=== PATIENT | female | born 1960 | race Caucasian/White ===

== ENCOUNTER 2019-03-31 15:09 | Emergency (ER) | payer MEDICARE, MEDICAID ==
[~2019-03-31] VITALS: Ht 170.2 cm; Wt 45.8 kg
[~2019-03-31 15:09] MED LIST: CITA20TA28 PO; DOCU100C63 PO; GABA-338 PO; LEVE500T PO; OMEP-84 PO
[2019-03-31 15:58] LABS: BASOPHILS % (AUTO) 0.9 % (0-1); EOSINOPHILS # (AUTO) 0.1 X10'3 (0-0.9); EOSINOPHILS % (AUTO) 1.8 % (0-6); HEMATOCRIT 36.3 % (35.0-45.0); HEMOGLOBIN 12.5 g/dl (12.0-16.0); LYMPHOCYTES # (AUTO) 1.3 X10'3 (1.1-4.8); LYMPHOCYTES % (AUTO) 25.3 % (21-51); MEAN CORPUSCULAR HEMOGLOBIN 35.2 PG (27.0-31.0); MEAN CORPUSCULAR HGB CONC 34.5 g/dL (33.0-36.5); MEAN PLATELET VOLUME 7.5 FL (7.4-10.4); MONOCYTES # (AUTO) 0.4 X10'3 (0-0.9); MONOCYTES % (AUTO) 7.9 % (2-12); NEUTROPHILS # (AUTO) 3.4 X10'3 (1.8-7.7); NEUTROPHILS % (AUTO) 64.1 % (42-75); PLATELET COUNT 186 X10'3 (140-440); RED BLOOD COUNT 3.56 X10'6 (4.20-5.60); WHITE BLOOD COUNT 5.2 X10'3 (4.5-11.0)
[2019-03-31] MEDS ORDERED: LIDOcaine Viscous 15ml cup PO ONE (16:00)
[2019-03-31] MEDS ORDERED: mag hydrox/Alum hydrox/simeth 30ml oral suspension PO ONE (16:00)
[2019-03-31 16:05] LABS: ALANINE AMINOTRANSFERASE 82 U/L (12-78); ALBUMIN 4.3 G/DL (3.4-5.0); ALBUMIN/GLOBULIN RATIO 1.1 (1.1-1.5); ALKALINE PHOSPHATASE 83 IU/L (46-116); ANION GAP 11 (8-16); ASPARTATE AMINO TRANSFERASE 100 U/L (10-37); BILIRUBIN,TOTAL 0.3 MG/DL (0.1-1.0); BLOOD UREA NITROGEN 9 MG/DL (7-18); BUN/CREATININE RATIO 11.7 (6.6-38.0); CALCIUM 9.1 MG/DL (8.5-10.1); CHLORIDE 97 MMOL/L (99-107); CREATININE 0.77 MG/DL (0.40-0.90); GLUCOSE 109 MG/DL (70-104); POTASSIUM 4.1 MMOL/L (3.5-5.1); SODIUM 134 MMOL/L (135-145); TOTAL CARBON DIOXIDE 25.6 MMOL/L (24-32); TOTAL PROTEIN 8.3 G/DL (6.4-8.2); eGFR 78 ML/MIN
[2019-03-31 16:08] LABS: PARTIAL THROMBOPLASTIN TIME 25 SECONDS (22-32)
[2019-03-31] MEDS ORDERED: OMEP40CA13 PO (16:12)
[2019-03-31 16:53] VITALS: BP 166/94
== END 2019-03-31 16:55 | disposition home or self-care (01) ==
LOC: ER 15:09
DX: R07.89 Other chest pain (principal); G89.29 Other chronic pain; M19.90 Unspecified osteoarthritis, unspecified site; F41.9 Anxiety disorder, unspecified; F32.9 Major depressive disorder, single episode, unspecified; F10.99 Alcohol use, unspecified with unspecified alcohol-induced disorder; Z86.69 Personal history of other diseases of the nervous system and sense organs; Z98.890 Other specified postprocedural states; Z98.51 Tubal ligation status; F17.210 Nicotine dependence, cigarettes, uncomplicated; Z88.8 Allergy status to other drugs, medicaments and biological substances; Z79.899 Other long term (current) drug therapy; Y90.9 Presence of alcohol in blood, level not specified
CPT/HCPCS: 36415; 71045; 80053; 83880; 84484; 85025; 85610; 85730; 93005; 99284

== ENCOUNTER 2019-04-18 18:19 | Emergency (ER) | payer MEDICARE, MEDICAID ==
[~2019-04-18] VITALS: Ht 171.4 cm; Wt 59.1 kg
[~2019-04-18 18:19] MED LIST changes: +OMEP40CA13 PO
[2019-04-18 18:31] VITALS: BP 85/33
--- NOTE | 2019-04-18 18:39 | NUR ---
Pt said after triage that she thinks its just that she is low on water and that she would probably just go home and drink water.
== END 2019-04-18 19:45 | disposition left against medical advice (07) ==
LOC: ER 18:20
DX: R42 Dizziness and giddiness (principal); Z53.21 Procedure and treatment not carried out due to patient leaving prior to being seen by health care provider
CPT/HCPCS: 93005

== ENCOUNTER 2020-01-09 17:04 | Emergency (ER) | payer MEDICARE, MEDICAID ==
[~2020-01-09] VITALS: Ht 170.2 cm; Wt 59.0 kg
[~2020-01-09 17:04] MED LIST changes: -OMEP40CA13 PO
[2020-01-09 17:23] VITALS: BP 123/72
== END 2020-01-09 19:46 | disposition home or self-care (01) ==
LOC: ER 17:05
DX: S32.511A Fracture of superior rim of right pubis, initial encounter for closed fracture (principal); M25.551 Pain in right hip; M19.90 Unspecified osteoarthritis, unspecified site; G89.29 Other chronic pain; F41.9 Anxiety disorder, unspecified; F32.9 Major depressive disorder, single episode, unspecified; Z98.51 Tubal ligation status; Z86.69 Personal history of other diseases of the nervous system and sense organs; Z87.440 Personal history of urinary (tract) infections; Z98.890 Other specified postprocedural states; Z72.89 Other problems related to lifestyle; Z88.8 Allergy status to other drugs, medicaments and biological substances; Z79.899 Other long term (current) drug therapy; W18.39XA Other fall on same level, initial encounter; Y93.89 Activity, other specified; Y92.89 Other specified places as the place of occurrence of the external cause; Y99.8 Other external cause status
CPT/HCPCS: 73502; 99283

== ENCOUNTER 2020-05-05 12:14 | Inpatient (IN) | payer MEDICARE, MEDICAID ==
[~2020-05-05] VITALS: Ht 170.2 cm; Wt 63.6 kg
[2020-05-05] VITALS (17 sets, daily range): BP systolic 85–105; BP diastolic 47–60
[2020-05-05] MEDS ORDERED: fentaNYL/PF 50MCG/1 ML 2ML syringe IV ONE (12:30)
[2020-05-05] MEDS ORDERED: ondansetron/PF 4mg/2ml inj IV ONE (12:30)
[2020-05-05] MEDS ORDERED: LIDOcaine 2% 10ml TOPICAL JELLY (Urojet) TP ONE (12:30)
--- NOTE | 2020-05-05 12:58 | NUR ---
BACK FROM RADIOLOGY
[2020-05-05] MEDS ORDERED: normal saline 1000ml 1,000 ML IV ONE (13:10)
[2020-05-05] MEDS ORDERED: normal saline 1000ML IV soln IVB ONE (13:10)
[2020-05-05 13:31] LABS: BASOPHILS % (AUTO) 0.5 % (0-1); EOSINOPHILS % (AUTO) 0 % (0-6); HEMOGLOBIN 11.9 g/dl (12.0-16.0); LYMPHOCYTES # (AUTO) 0.8 X10'3 (1.1-4.8); MEAN CORPUSCULAR HEMOGLOBIN 34.7 PG (27.0-31.0); MEAN PLATELET VOLUME 8.1 FL (7.4-10.4); MONOCYTES # (AUTO) 0.7 X10'3 (0-0.9); MONOCYTES % (AUTO) 11.2 % (2-12); NEUTROPHILS # (AUTO) 4.5 X10'3 (1.8-7.7); NEUTROPHILS % (AUTO) 75.3 % (42-75); PLATELET COUNT 178 X10'3 (140-440); RED BLOOD COUNT 3.43 X10'6 (4.20-5.60); RED CELL DISTRIBUTION WIDTH 12.6 % (11.5-14.5)
[2020-05-05 13:44] LABS: PARTIAL THROMBOPLASTIN TIME 24 SECONDS (22-32)
[2020-05-05] MEDS ORDERED: magnesium 2GM in 50ml NS 50 ML IV PRN (13:45)
[2020-05-05] MEDS ORDERED: magnesium 4gm in 100ml NS 100 ML IV PRN (13:45)
[2020-05-05] MEDS ORDERED: potassium CL 10mEq/100ml bag 100 ML IV PRN ×2 (13:45)
[2020-05-05] MEDS ORDERED: morphine 2 MG/ML inj. syringe IV PRN ×2 (13:45→19:00)
[2020-05-05] MEDS ORDERED: ondansetron/PF 4mg/2ml inj IV PRN ×2 (13:45→19:00)
[2020-05-05] MEDS ORDERED: potassium Cl 20 mEq SR tablet PO PRN ×2 (13:45)
[2020-05-05] MEDS ORDERED: acetaminophen 325mg tablet PO PRN (13:45)
[2020-05-05 13:47] LABS: ALANINE AMINOTRANSFERASE 103 U/L (12-78); ALBUMIN 4.2 G/DL (3.4-5.0); ALBUMIN/GLOBULIN RATIO 1.1 (1.1-1.5); ALKALINE PHOSPHATASE 71 IU/L (46-116); ANION GAP 11 (8-16); ASPARTATE AMINO TRANSFERASE 106 U/L (10-37); BILIRUBIN,TOTAL 0.4 MG/DL (0.1-1.0); BLOOD UREA NITROGEN 12 MG/DL (7-18); CALCIUM 9.3 MG/DL (8.5-10.1); CHLORIDE 96 MMOL/L (99-107); GLUCOSE 103 MG/DL (70-104); POTASSIUM 4.4 MMOL/L (3.5-5.1); SODIUM 129 MMOL/L (135-145); TOTAL CARBON DIOXIDE 22.1 MMOL/L (24-32); TOTAL PROTEIN 8.1 G/DL (6.4-8.2); eGFR 57 ML/MIN
[2020-05-05] MEDS ORDERED: LAMO25TA23 PO (14:06)
[2020-05-05] MEDS ORDERED: SERT50TA10 PO (14:06)
[2020-05-05] MEDS ORDERED: ZIPR20CA12 PO (14:06)
[2020-05-05] MEDS ORDERED: ZOLP5TAB8 PO (14:06)
[2020-05-05] MEDS ORDERED: TRAZ-256 PO (14:06)
[2020-05-05] MEDS ORDERED: OMEP10CA5 PO (14:06)
[2020-05-05] MEDS ORDERED: HYDR-3972 PO (14:06)
--- NOTE | 2020-05-05 14:13 | NUR ---
Ninfa verma in ED - 05/05/20 at [address] SCAN AFTER PT PULLED OUT IV, FRESH 20 G PIV STARTED TO LEFT FOREARM
[2020-05-05 14:14] LABS: CLARITY,URINE CLOUDY (Clear); COLOR,URINE STRAW (Yellow); GLUCOSE, URINE NEGATIVE (Neg); KETONES,URINE NEGATIVE (Neg); LEUKOCYTE ESTERASE ,URINE SMALL (Neg); NITRITES, URINE POSITIVE (Neg); OCCULT BLOOD,URINE TRACE-LYSED (Neg); PROTEIN,URINE NEGATIVE (Neg); UROBILINOGEN,URINE 0.2 E.U/dL (0.2-1.0)
--- NOTE | 2020-05-05 14:16 | NUR ---
MULTIPLE ATTEMPTS TO OBTAIN 5 LEAD AND IV PUMP UNFRUITFUL, SUPERVISOR PAPER TESTINGERNA ELMORE,
--- NOTE | 2020-05-05 14:17 | NUR ---
FALL WRIST BAND AND ALLERGY BAND PLACED
[2020-05-05 14:19] LABS: UA COLLECTION TYPE FOLEY CATH
[2020-05-05 14:24] LABS: CELLULAR CAST 0-4 /LPF (NEGATIVE); HYALINE CASTS 0-3 /LPF (NEGATIVE); MUCUS STRANDS NONE SEEN /LPF (Neg); SQUAMOUS EPITHELIAL CELL,UR MODERATE /LPF (FEW); TRANSITIONAL EPI CELLS,URINE FEW /HPF
[2020-05-05 14:25] LABS: RENAL CELLS, URINE FEW /HPF; WBC,URINE 50-100 /HPF (0-4)
[2020-05-05 14:26] LABS: BACTERIA,URINE 4+ /HPF (Neg); RBC,URINE 0-2 /HPF (0-2); WBC CLUMPS,URINE FEW /HPF (NEGATIVE)
--- NOTE | 2020-05-05 16:28 | NUR ---
Patient in room ED 12. I have received report from SHELL UMANZOR and had the opportunity to ask questions and assume patient care.
--- NOTE | 2020-05-05 16:50 | NUR ---
pt left to OR for surgery
[2020-05-05] MEDS ORDERED: midazolam 2 mg/2 ml injection ONE (18:06)
[2020-05-05] MEDS ORDERED: fentaNYL /PF 50mcg/ml 5ml ampule ONE (18:06)
[2020-05-05] MEDS ORDERED: propofol inj 20 ML IV ONE (18:08)
--- NOTE | 2020-05-05 18:39 | NUR ---
Problems reprioritized. Patient report given, questions answered & plan of care reviewed with rachel Murcia.
[2020-05-05] MEDS ORDERED: proCHLORperazine 10 MG/2 ml inj IV PRN (19:00)
[2020-05-05] MEDS ORDERED: ringers solution, lacted 1,000 ML IV SCH (19:00)
[2020-05-05] MEDS ORDERED: ceFAZolin 1000mg inj ONE ×2 (19:26)
--- NOTE | 2020-05-05 19:28 | NUR ---
Received from OR via BED, accompanied by Anesthesiologist DR MCCORMICK and report given by Anesthesiologist. PT DROWSY, DENIES PAIN, LEFT HIP W/2 LARGE BANDAIDS CDI, TALBERT CATHETER TO GRAVITY DRAINAGE W/YELLOW URINE IN DRAINAGE BAG. PT W/BRUISE TO RIGHT EYE. BLANKET WARMER APPLIED FOR TEMP OF 35.9. Addendum: 05/05/20 at 2054 by Dedra Simmons RN Amended: Links added.
[2020-05-05] MEDS: K and/or MAG REPLACEMENT MC SCH (20:00)
[2020-05-05] MEDS ORDERED: enoxaparin 30mg/0.3ml syringe SUBCUT ONE (20:10)
[2020-05-05] MEDS: morphine 4 MG/ML inj SYRINge IV PRN ×2 (21:01→21:19)
--- NOTE | 2020-05-05 21:30 | NUR ---
Patient in room ORTHO 4010. I have received report from ERNA Colmenares in OR and had the opportunity to ask questions and assume patient care.
--- NOTE | 2020-05-05 21:38 | NUR ---
Report called to receiving nurse. Transferred via BED W/GLASSES ONLY Belongings, RECEIVING RN AT BEDSIDE TO RECEIVE PT, BLL, CALL LIGHT GIVEN, SIDE RAILS UP X 2, PAIN IMPROVED. Special Issues communicated to receiving nurse. YES. Addendum: 05/05/20 at 2149 by Dedra Simmons RN Amended: Links added.
[2020-05-05] MEDS: normal saline 1000ml 1,000 ML IV SCH (22:23)
[2020-05-05] MEDS: ziprasidone 20mg capsule PO SCH (22:23)
[2020-05-05] MEDS: traZODone 50mg tablet PO SCH (22:23)
[2020-05-05] MEDS: lamoTRIgine 25mg tablet PO SCH (22:24)
[2020-05-05] MEDS: sertraline 50mg tablet PO SCH (22:24)
[2020-05-05] MEDS: zolpidem 5mg tablet PO SCH (22:36)
[2020-05-06] VITALS (8 sets, daily range): BP systolic 81–130; BP diastolic 50–79
[2020-05-06] MEDS: cefazolin/dext.iso 2gm/50ml 50 ML IV SCH ×2 (00:28→11:17)
[2020-05-06] MEDS: HYDROcodone/acetaminophen 5mg/325mg tablet PO PRN ×3 (05:24→20:28)
[2020-05-06 06:26] LABS: BASOPHILS % (AUTO) 0.4 % (0-1); EOSINOPHILS % (AUTO) 0 % (0-6); HEMATOCRIT 22.7 % (35.0-45.0); HEMOGLOBIN 7.8 g/dl (12.0-16.0); LYMPHOCYTES # (AUTO) 0.4 X10'3 (1.1-4.8); LYMPHOCYTES % (AUTO) 9.9 % (21-51); MEAN CORPUSCULAR HEMOGLOBIN 35.3 PG (27.0-31.0); MEAN CORPUSCULAR HGB CONC 34.4 g/dL (33.0-36.5); MEAN CORPUSCULAR VOLUME 102.4 FL (78-98); MEAN PLATELET VOLUME 7.7 FL (7.4-10.4); MONOCYTES # (AUTO) 0.4 X10'3 (0-0.9); MONOCYTES % (AUTO) 11.3 % (2-12); NEUTROPHILS # (AUTO) 2.9 X10'3 (1.8-7.7); NEUTROPHILS % (AUTO) 78.4 % (42-75); PLATELET COUNT 118 X10'3 (140-440); RED BLOOD COUNT 2.22 X10'6 (4.20-5.60); RED CELL DISTRIBUTION WIDTH 12.6 % (11.5-14.5); WHITE BLOOD COUNT 3.7 X10'3 (4.5-11.0)
--- NOTE | 2020-05-06 06:28 | NUR ---
Patient in room ORTHO 4010. I have received report from Marii UMANZOR and had the opportunity to ask questions and assume patient care.
--- NOTE | 2020-05-06 06:34 | NUR ---
Problems reprioritized. Patient report given, questions answered & plan of care reviewed with ERNA Long.
--- NOTE | 2020-05-06 06:39 | NUR ---
I have received report from Tahmina UMANZOR and had the opportunity to ask questions and assume patient care.
--- NOTE | 2020-05-06 06:40 | NUR ---
Patient in room ORTHO 4010B. I have received report from Tahmina UMANZOR and had the opportunity to ask questions and assume patient care.
[2020-05-06 06:53] LABS: ALBUMIN 2.9 G/DL (3.4-5.0); ANION GAP 9 (8-16); BLOOD UREA NITROGEN 6 MG/DL (7-18); BUN/CREATININE RATIO 8.6 (6.6-38.0); CALCIUM 7.6 MG/DL (8.5-10.1); CHLORIDE 100 MMOL/L (99-107); GLUCOSE 128 MG/DL (70-104); MAGNESIUM 1.3 MG/DL (1.5-2.4); POTASSIUM 3.3 MMOL/L (3.5-5.1); SODIUM 130 MMOL/L (135-145); TOTAL CARBON DIOXIDE 21.5 MMOL/L (24-32); eGFR 86 ML/MIN
[2020-05-06] MEDS: K and/or MAG REPLACEMENT MC SCH ×2 (08:00→20:00)
[2020-05-06] MEDS: pantoprazole 40mg Tablet.DR PO SCH (09:16)
[2020-05-06] MEDS: CefTRIAXone/D5W-Rocephin 1gm 50 ML IV SCH (09:17)
[2020-05-06] MEDS: normal saline 1000ml 1,000 ML IV SCH ×2 (09:19→20:30)
[2020-05-06] MEDS: magnesium Cl slow-release 64mg tablet PO PRN ×2 (11:18→17:43)
--- NOTE | 2020-05-06 16:46 | NUR ---
Student documentation: I have reviewed all interventions, assessments performed and documented by Comfort CANTU of [facility]. Student Medication Administration: For all medication-pass' in the time frame of 8369-3036, all medications were reviewed, dispensed, administered and documented per hospital policy by Comfort CANTU of [facility].
--- NOTE | 2020-05-06 17:07 | NUR ---
Patient states her last BM was 05/05/20. Not seen by nursing staff. Addendum: 05/06/20 at 1708 by Mercedes Pires RN Amended: Links added.
--- NOTE | 2020-05-06 18:32 | NUR ---
Patient in room ORTHO 4010. I have received report from ERNA Long and had the opportunity to ask questions and assume patient care.
[2020-05-06] MEDS: traZODone 50mg tablet PO SCH (20:27)
[2020-05-06] MEDS: sertraline 50mg tablet PO SCH (20:27)
[2020-05-06] MEDS: ziprasidone 20mg capsule PO SCH (20:27)
[2020-05-06] MEDS: lamoTRIgine 25mg tablet PO SCH (20:27)
[2020-05-06] MEDS: zolpidem 5mg tablet PO SCH (20:27)
[2020-05-07] MEDS: HYDROcodone/acetaminophen 5mg/325mg tablet PO PRN ×2 (04:10→08:03)
[2020-05-07 06:00] VITALS: BP 90/50
--- NOTE | 2020-05-07 06:35 | NUR ---
Problems reprioritized. Patient report given, questions answered & plan of care reviewed with ERNA Gamez.
[2020-05-07 06:47] LABS: BASOPHILS % (AUTO) 0.4 % (0-1); EOSINOPHILS % (AUTO) 0 % (0-6); HEMOGLOBIN 7.2 g/dl (12.0-16.0); LYMPHOCYTES # (AUTO) 0.5 X10'3 (1.1-4.8); LYMPHOCYTES % (AUTO) 10.1 % (21-51); MEAN CORPUSCULAR HEMOGLOBIN 35.9 PG (27.0-31.0); MEAN CORPUSCULAR HGB CONC 35.1 g/dL (33.0-36.5); MEAN CORPUSCULAR VOLUME 102.3 FL (78-98); MEAN PLATELET VOLUME 7.1 FL (7.4-10.4); MONOCYTES # (AUTO) 0.7 X10'3 (0-0.9); NEUTROPHILS # (AUTO) 3.4 X10'3 (1.8-7.7); NEUTROPHILS % (AUTO) 74.5 % (42-75); PLATELET COUNT 119 X10'3 (140-440); RED CELL DISTRIBUTION WIDTH 12.7 % (11.5-14.5); WHITE BLOOD COUNT 4.6 X10'3 (4.5-11.0)
[2020-05-07 06:54] LABS: HEMATOCRIT 20.4 % (35.0-45.0)
[2020-05-07 06:55] LABS: ALBUMIN 2.6 G/DL (3.4-5.0); ANION GAP 6 (8-16); BLOOD UREA NITROGEN 3 MG/DL (7-18); BUN/CREATININE RATIO 5.6 (6.6-38.0); CALCIUM 8.1 MG/DL (8.5-10.1); CHLORIDE 101 MMOL/L (99-107); CREATININE 0.54 MG/DL (0.40-0.90); GLUCOSE 115 MG/DL (70-104); MAGNESIUM 1.6 MG/DL (1.5-2.4); POTASSIUM 3.7 MMOL/L (3.5-5.1); SODIUM 132 MMOL/L (135-145); TOTAL CARBON DIOXIDE 25.1 MMOL/L (24-32); eGFR > 90 ML/MIN
--- NOTE | 2020-05-07 07:01 | NUR ---
Patient in room ORTHO 4009. I have received report from Tahmina and had the opportunity to ask questions and assume patient care.
--- NOTE | 2020-05-07 07:21 | NUR ---
Franco 5199 Re: Cony Mccabe 7.2/20.4
[2020-05-07] MEDS: normal saline 1000ml 1,000 ML IV SCH ×2 (07:39→16:03)
[2020-05-07] MEDS: K and/or MAG REPLACEMENT MC SCH ×2 (07:42→20:00)
[2020-05-07] MEDS: CefTRIAXone/D5W-Rocephin 1gm 50 ML IV SCH (08:02)
[2020-05-07] MEDS: pantoprazole 40mg Tablet.DR PO SCH (08:03)
[2020-05-07 10:00] VITALS: BP 95/60
--- NOTE | 2020-05-07 11:16 | NUR ---
Re: Denita Cooper Pt pulled iv out. Will need another one. thank you.
[2020-05-07] MEDS ORDERED: ondansetron 4mg rapidly disintigrating tab PO PRN (11:20)
[2020-05-07] MEDS: HYDROcodone/acetaminophen 10/325mg tab PO PRN ×3 (12:18→21:39)
--- NOTE | 2020-05-07 14:06 | NUR ---
Franco 5199 Re: Cony Mccabe 7.2/20.4 from this am. Do you want to give patient blood?
[2020-05-07 18:00] VITALS: BP 121/78
[2020-05-07] MEDS: zolpidem 5mg tablet PO SCH (21:23)
[2020-05-07] MEDS: traZODone 50mg tablet PO SCH (21:23)
[2020-05-07] MEDS: ziprasidone 20mg capsule PO SCH (21:23)
[2020-05-07] MEDS: lamoTRIgine 25mg tablet PO SCH (21:24)
[2020-05-07] MEDS: sertraline 50mg tablet PO SCH (21:24)
[2020-05-07 22:00] VITALS: BP 135/68
[2020-05-08] VITALS (7 sets, daily range): BP systolic 95–137; BP diastolic 51–74
[2020-05-08] MEDS: normal saline 1000ml 1,000 ML IV SCH ×3 (01:24→20:32)
--- NOTE | 2020-05-08 06:25 | NUR ---
Patient in room ORTHO 4010. I have received report from [place] and had the opportunity to ask questions and assume patient care.
[2020-05-08 06:29] LABS: LYMPHOCYTES # (AUTO) 0.9 X10'3 (1.1-4.8); MONOCYTES # (AUTO) 0.6 X10'3 (0-0.9); NEUTROPHILS # (AUTO) 2.9 X10'3 (1.8-7.7); PLATELET COUNT 129 X10'3 (140-440); RED CELL DISTRIBUTION WIDTH 12.5 % (11.5-14.5); WHITE BLOOD COUNT 4.4 X10'3 (4.5-11.0)
[2020-05-08 06:38] LABS: ALBUMIN 2.6 G/DL (3.4-5.0); ANION GAP 10 (8-16); BLOOD UREA NITROGEN 6 MG/DL (7-18); BUN/CREATININE RATIO 10.7 (6.6-38.0); CALCIUM 8.7 MG/DL (8.5-10.1); CHLORIDE 100 MMOL/L (99-107); CREATININE 0.56 MG/DL (0.40-0.90); GLUCOSE 103 MG/DL (70-104); MAGNESIUM 1.7 MG/DL (1.5-2.4); POTASSIUM 3.8 MMOL/L (3.5-5.1); SODIUM 136 MMOL/L (135-145); TOTAL CARBON DIOXIDE 26.4 MMOL/L (24-32); eGFR > 90 ML/MIN
[2020-05-08 06:42] LABS: HEMOGLOBIN 7.1 g/dl (12.0-16.0); MEAN CORPUSCULAR HGB CONC 35.2 g/dL (33.0-36.5); MEAN CORPUSCULAR VOLUME 102.2 FL (78-98); RED BLOOD COUNT 1.97 X10'6 (4.20-5.60)
[2020-05-08 06:43] LABS: BASOPHILS % (AUTO) 0.4 % (0-1); EOSINOPHILS % (AUTO) 0.1 % (0-6); LYMPHOCYTES % (AUTO) 19.3 % (21-51); MEAN PLATELET VOLUME 7.6 FL (7.4-10.4); MONOCYTES % (AUTO) 14.4 % (2-12); NEUTROPHILS % (AUTO) 65.8 % (42-75)
[2020-05-08 06:44] LABS: HEMATOCRIT 20.2 % (35.0-45.0)
--- NOTE | 2020-05-08 07:00 | NUR ---
PAGER ID: [phone] MESSAGE: Nguyen Valencia on ortho, critical hematocrit of 20.2 for Ms. Sher in , thank you
[2020-05-08] MEDS: K and/or MAG REPLACEMENT MC SCH ×2 (08:00→19:51)
[2020-05-08] MEDS: pantoprazole 40mg Tablet.DR PO SCH (08:20)
[2020-05-08] MEDS: CefTRIAXone/D5W-Rocephin 1gm 50 ML IV SCH (08:20)
[2020-05-08] MEDS: HYDROcodone/acetaminophen 10/325mg tab PO PRN ×3 (08:21→19:09)
[2020-05-08] MEDS: aspirin 325mg tablet PO SCH (08:21)
--- NOTE | 2020-05-08 18:25 | NUR ---
Problems reprioritized. Patient report given, questions answered & plan of care reviewed with Debbie Merrill
[2020-05-08] MEDS: traZODone 50mg tablet PO SCH (20:53)
[2020-05-08] MEDS: lamoTRIgine 25mg tablet PO SCH (20:53)
[2020-05-08] MEDS: sertraline 50mg tablet PO SCH (20:53)
[2020-05-08] MEDS: zolpidem 5mg tablet PO SCH (20:54)
[2020-05-08] MEDS: ziprasidone 20mg capsule PO SCH (20:54)
[2020-05-09] MEDS: HYDROcodone/acetaminophen 10/325mg tab PO PRN ×3 (00:22→11:32)
--- NOTE | 2020-05-09 01:24 | NUR ---
reviewed and agree with SRN assessment.
[2020-05-09 06:29] LABS: ALBUMIN 2.7 G/DL (3.4-5.0); BLOOD UREA NITROGEN 6 MG/DL (7-18); GLUCOSE 97 MG/DL (70-104); MAGNESIUM 1.8 MG/DL (1.5-2.4); TOTAL CARBON DIOXIDE 28.1 MMOL/L (24-32); eGFR > 90 ML/MIN
[2020-05-09 06:32] LABS: BASOPHILS % (AUTO) 0.7 % (0-1); EOSINOPHILS % (AUTO) 0 % (0-6); HEMATOCRIT 23.6 % (35.0-45.0); HEMOGLOBIN 8.3 g/dl (12.0-16.0); LYMPHOCYTES # (AUTO) 0.8 X10'3 (1.1-4.8); LYMPHOCYTES % (AUTO) 19.3 % (21-51); MEAN CORPUSCULAR HEMOGLOBIN 34.3 PG (27.0-31.0); MEAN CORPUSCULAR HGB CONC 35.1 g/dL (33.0-36.5); MEAN CORPUSCULAR VOLUME 97.7 FL (78-98); MONOCYTES # (AUTO) 0.7 X10'3 (0-0.9); MONOCYTES % (AUTO) 15.7 % (2-12); NEUTROPHILS # (AUTO) 2.7 X10'3 (1.8-7.7); NEUTROPHILS % (AUTO) 64.3 % (42-75); PLATELET COUNT 167 X10'3 (140-440); RED BLOOD COUNT 2.41 X10'6 (4.20-5.60); RED CELL DISTRIBUTION WIDTH 15.5 % (11.5-14.5); WHITE BLOOD COUNT 4.3 X10'3 (4.5-11.0)
[2020-05-09 06:49] LABS: ANION GAP 8 (8-16); CHLORIDE 98 MMOL/L (99-107); POTASSIUM 3.6 MMOL/L (3.5-5.1); SODIUM 134 MMOL/L (135-145)
[2020-05-09] MEDS: CefTRIAXone/D5W-Rocephin 1gm 50 ML IV SCH (07:31)
[2020-05-09] MEDS: aspirin 325mg tablet PO SCH (07:31)
[2020-05-09] MEDS: pantoprazole 40mg Tablet.DR PO SCH (07:31)
[2020-05-09] MEDS: K and/or MAG REPLACEMENT MC SCH (08:00)
[2020-05-09 08:36] VITALS: BP 106/61
--- NOTE | 2020-05-09 08:58 | NUR ---
PAGER ID: [phone] MESSAGE: Lori [phone]- re Cony Sher in - can I order some MOM for her?
[2020-05-09] MEDS: normal saline 1000ml 1,000 ML IV SCH (09:39)
[2020-05-09] MEDS ORDERED: ASPI-1 PO (10:32)
[2020-05-09] MEDS ORDERED: magnesium hydroxide 30ml (MOM) UD suspension PO ONE (10:55)
[2020-05-09 12:12] VITALS: BP 95/63
[2020-05-09 13:45] LABS: ALANINE AMINOTRANSFERASE 58 U/L (12-78); ALBUMIN/GLOBULIN RATIO 0.7 (1.1-1.5); ALKALINE PHOSPHATASE 63 IU/L (46-116); ASPARTATE AMINO TRANSFERASE 61 U/L (10-37); BILIRUBIN,DIRECT 0.3 MG/DL (0-0.3); BILIRUBIN,TOTAL 0.6 MG/DL (0.1-1.0); TOTAL PROTEIN 6.6 G/DL (6.4-8.2)
== END 2020-05-09 16:15 | DRG 481 ==
LOC: ER 12:15 → ED HOLD 13:42 → ORTHO 4S 21:41
PROVIDERS: ADMIT Internal Medicine; ATTEND Internal Medicine
PROC: 0QH936Z Insertion of Intramedullary Internal Fixation Device into Left Femoral Shaft, Percutaneous Approach (ICD-10-PCS; principal; 2020-05-05 18:03)
PROC: 30233N1 Transfusion of Nonautologous Red Blood Cells into Peripheral Vein, Percutaneous Approach (ICD-10-PCS; 2020-05-08)
DX: S72.352A Displaced comminuted fracture of shaft of left femur, initial encounter for closed fracture (principal); E87.1 Hypo-osmolality and hyponatremia; D62 Acute posthemorrhagic anemia; N39.0 Urinary tract infection, site not specified; N28.9 Disorder of kidney and ureter, unspecified; F17.210 Nicotine dependence, cigarettes, uncomplicated; F39 Unspecified mood [affective] disorder; G47.00 Insomnia, unspecified; W18.39XA Other fall on same level, initial encounter; F32.9 Major depressive disorder, single episode, unspecified; F41.9 Anxiety disorder, unspecified; G89.29 Other chronic pain; M54.9 Dorsalgia, unspecified; M19.90 Unspecified osteoarthritis, unspecified site; Z91.81 History of falling; Z79.82 Long term (current) use of aspirin; Y93.89 Activity, other specified; Y92.89 Other specified places as the place of occurrence of the external cause; Y99.8 Other external cause status; R42 Dizziness and giddiness
CPT/HCPCS: 36415; 36430; 71045; 72170; 73552; 76000; 80048; 80053; 80076; 81001; 83735; 85025; 85610; 85730; 86885; 86900; 86901; 86920; 87077; 87081; 87088; 87186; 93005; 96374; 96375; 97110; 97112; 97116; 97161; 97530; 99285; A4618; A7000; C1713; G0378; J0690; J0696; J1650; J2250; J2270; J2405; J2704; J3010; J7030; J7120; P9016

== ENCOUNTER 2020-08-20 23:08 | Emergency (ER) | payer MEDICARE, MEDICAID ==
[~2020-08-20] VITALS: Ht 172.7 cm; Wt 72.7 kg
[~2020-08-20 23:08] MED LIST changes: -CITA20TA28 PO; -DOCU100C63 PO; -GABA-338 PO; +HYDR-3972 PO; +LAMO25TA23 PO; -LEVE500T PO; -OMEP-84 PO; +OMEP10CA5 PO; +SERT50TA10 PO; +TRAZ-256 PO; +ZIPR20CA12 PO; +ZOLP5TAB8 PO
[2020-08-20 23:18] VITALS: BP 120/78
[2020-08-21] MEDS ORDERED: TRAM50TA2 PO (03:10)
== END 2020-08-20 23:45 | disposition home or self-care (01) ==
LOC: ER 23:09
DX: F10.129 Alcohol abuse with intoxication, unspecified (principal); M19.90 Unspecified osteoarthritis, unspecified site; G89.29 Other chronic pain; F41.9 Anxiety disorder, unspecified; F32.9 Major depressive disorder, single episode, unspecified; Z86.69 Personal history of other diseases of the nervous system and sense organs; Z87.440 Personal history of urinary (tract) infections; Z98.51 Tubal ligation status; Z98.890 Other specified postprocedural states; Z72.89 Other problems related to lifestyle; Z88.8 Allergy status to other drugs, medicaments and biological substances; Z79.899 Other long term (current) drug therapy; Y90.9 Presence of alcohol in blood, level not specified
CPT/HCPCS: 99283

== ENCOUNTER 2020-10-19 12:19 | Emergency (ER) | payer BC, MEDICAID ==
[~2020-10-19] VITALS: Ht 172.7 cm; Wt 63.6 kg
[~2020-10-19 12:19] MED LIST changes: +ASPI-1264 PO; +DOCU100C40 PO; +SERT-434 PO; -SERT50TA10 PO
[2020-10-19 13:01] VITALS: BP 157/75
== END 2020-10-19 15:24 | disposition home or self-care (01) ==
LOC: ER 12:20
DX: M25.512 Pain in left shoulder (principal); M19.90 Unspecified osteoarthritis, unspecified site; G89.29 Other chronic pain; F41.9 Anxiety disorder, unspecified; F32.9 Major depressive disorder, single episode, unspecified; F17.200 Nicotine dependence, unspecified, uncomplicated; Z86.69 Personal history of other diseases of the nervous system and sense organs; Z87.440 Personal history of urinary (tract) infections; Z98.51 Tubal ligation status; Z98.890 Other specified postprocedural states; Z72.89 Other problems related to lifestyle; Z88.8 Allergy status to other drugs, medicaments and biological substances; Z79.82 Long term (current) use of aspirin; Z79.899 Other long term (current) drug therapy
CPT/HCPCS: 73030; 73080; 99284

== ENCOUNTER 2020-12-31 16:56 | Emergency (ER) | payer BC, MEDICAID ==
[~2020-12-31] VITALS: Ht 170.2 cm; Wt 77.3 kg
[~2020-12-31 16:56] MED LIST changes: -ASPI-1264 PO
[2020-12-31 17:57] VITALS: BP 143/93
[2020-12-31] MEDS ORDERED: oxyCODONE/APAP 10/325mg tablet PO ONE (18:05)
[2020-12-31] MEDS ORDERED: OXYC-145 PO (18:33)
== END 2020-12-31 18:50 | disposition home or self-care (01) ==
LOC: ER 16:56
DX: M54.5 Low back pain (principal); G89.29 Other chronic pain; M54.32 Sciatica, left side; M25.552 Pain in left hip; M19.90 Unspecified osteoarthritis, unspecified site; F41.9 Anxiety disorder, unspecified; F32.9 Major depressive disorder, single episode, unspecified; Z86.69 Personal history of other diseases of the nervous system and sense organs; Z87.440 Personal history of urinary (tract) infections; Z98.51 Tubal ligation status; Z98.890 Other specified postprocedural states; Z72.89 Other problems related to lifestyle; Z88.8 Allergy status to other drugs, medicaments and biological substances; Z79.899 Other long term (current) drug therapy
CPT/HCPCS: 73502; 99283

== ENCOUNTER 2021-02-10 13:44 | Emergency (ER) | payer BC, MEDICAID ==
[~2021-02-10] VITALS: Ht 170.2 cm; Wt 53.0 kg
[~2021-02-10 13:44] MED LIST changes: +OXYC-145 PO
[2021-02-10 13:48] VITALS: BP 133/81
== END 2021-02-10 19:40 | disposition left against medical advice (07) ==
LOC: ER 13:46
DX: M25.552 Pain in left hip (principal); Z53.21 Procedure and treatment not carried out due to patient leaving prior to being seen by health care provider

== ENCOUNTER 2021-05-06 19:59 | Emergency (ER) | payer BC, MEDICAID ==
[~2021-05-06] VITALS: Ht 170.2 cm; Wt 53.6 kg
[~2021-05-06 19:59] MED LIST changes: +ACET-1 PO; +ASPI-1264 PO; -DOCU100C40 PO; +FOLI0.4T6 PO; +GABA-530 PO; +MULT-25 PO; -OXYC-145 PO; +PER5325T PO; +POTA-207 PO; +POTA10TA37 PO; +THIA100T70 PO; +TRAM50TA2 PO; +ZOLP10TA PO; -ZOLP5TAB8 PO
[2021-05-06] MEDS ORDERED: normal saline 1000ML IV soln IVB ONE (20:30)
[2021-05-06 20:54] LABS: BASOPHILS % (AUTO) 1.3 % (0-1); EOSINOPHILS # (AUTO) 0.1 X10'3 (0-0.9); EOSINOPHILS % (AUTO) 3.1 % (0-6); HEMATOCRIT 26.3 % (35.0-45.0); HEMOGLOBIN 8.9 g/dl (12.0-16.0); LYMPHOCYTES # (AUTO) 0.8 X10'3 (1.1-4.8); LYMPHOCYTES % (AUTO) 21.4 % (21-51); MEAN CORPUSCULAR HEMOGLOBIN 33.5 PG (27.0-31.0); MEAN CORPUSCULAR VOLUME 98.7 FL (78-98); MONOCYTES # (AUTO) 0.4 X10'3 (0-0.9); MONOCYTES % (AUTO) 11.3 % (2-12); NEUTROPHILS # (AUTO) 2.4 X10'3 (1.8-7.7); NEUTROPHILS % (AUTO) 62.9 % (42-75); PLATELET COUNT 290 X10'3 (140-440); RED BLOOD COUNT 2.66 X10'6 (4.20-5.60); RED CELL DISTRIBUTION WIDTH 12.7 % (11.5-14.5); WHITE BLOOD COUNT 3.8 X10'3 (4.5-11.0)
[2021-05-06 21:07] LABS: ALANINE AMINOTRANSFERASE 80 U/L (12-78); ALBUMIN 2.7 G/DL (3.4-5.0); ALBUMIN/GLOBULIN RATIO 0.6 (1.1-1.5); ALKALINE PHOSPHATASE 134 IU/L (46-116); ANION GAP 15 (8-16); ASPARTATE AMINO TRANSFERASE 90 U/L (10-37); BILIRUBIN,TOTAL 0.2 MG/DL (0.1-1.0); BLOOD UREA NITROGEN 13 MG/DL (7-18); BUN/CREATININE RATIO 18.6 (6.6-38.0); CALCIUM 8.3 MG/DL (8.5-10.1); CHLORIDE 99 MMOL/L (99-107); ETHANOL 0.043 GM/DL (0.0-0.010); GLUCOSE 91 MG/DL (70-104); POTASSIUM 3.4 MMOL/L (3.5-5.1); SODIUM 132 MMOL/L (135-145); TOTAL CARBON DIOXIDE 18.5 MMOL/L (24-32); TOTAL PROTEIN 6.9 G/DL (6.4-8.2); eGFR 86 ML/MIN
[2021-05-06 21:23] VITALS: BP 105/58
[2021-05-06 21:55] LABS: CLARITY,URINE SLIGHTLY CLOUDY (Clear); COLOR,URINE YELLOW (Yellow); UA COLLECTION TYPE CLN CATCH MIDSTREAM
[2021-05-06 21:56] LABS: GLUCOSE, URINE NEGATIVE (Neg); KETONES,URINE NEGATIVE (Neg); LEUKOCYTE ESTERASE ,URINE NEGATIVE (Neg); NITRITES, URINE NEGATIVE (Neg); OCCULT BLOOD,URINE MODERATE (Neg); PROTEIN,URINE NEGATIVE (Neg); UROBILINOGEN,URINE 0.2 E.U/dL (0.2-1.0)
[2021-05-06 22:04] LABS: HYALINE CASTS 0-3 /LPF (NEGATIVE); RENAL CELLS, URINE FEW /HPF; SQUAMOUS EPITHELIAL CELL,UR FEW /LPF (FEW)
[2021-05-06 22:05] LABS: BACTERIA,URINE NONE SEEN /HPF (Neg); URINE AMPHETAMINE SCREEN NEGATIVE (Neg); URINE BARBITUATE SCREEN NEGATIVE (Neg); URINE BENZODIAZEPINES SCREEN NEGATIVE (Neg); URINE CANNABINOID SCREEN NEGATIVE (Neg); URINE COCAINE SCREEN NEGATIVE (Neg); URINE METHADONE SCREEN NEGATIVE (Neg); URINE OPIATE SCREEN POSITIVE (Neg); URINE PHENCYCLIDINE SCREEN NEGATIVE (Neg); WBC,URINE 0-4 /HPF (0-4)
== END 2021-05-06 22:49 | disposition home or self-care (01) ==
LOC: ER 19:59
DX: F10.129 Alcohol abuse with intoxication, unspecified (principal); E86.0 Dehydration; R53.1 Weakness; M19.90 Unspecified osteoarthritis, unspecified site; G89.29 Other chronic pain; F41.9 Anxiety disorder, unspecified; F31.9 Bipolar disorder, unspecified; Z86.69 Personal history of other diseases of the nervous system and sense organs; Z87.440 Personal history of urinary (tract) infections; Z98.51 Tubal ligation status; Z98.890 Other specified postprocedural states; Z72.89 Other problems related to lifestyle; Z88.8 Allergy status to other drugs, medicaments and biological substances; Z79.82 Long term (current) use of aspirin; Z79.899 Other long term (current) drug therapy; Y90.0 Blood alcohol level of less than 20 mg/100 ml
CPT/HCPCS: 36415; 80053; 80305; 80320; 81001; 82948; 85025; 93005; 99284

== ENCOUNTER 2022-03-02 14:47 | Emergency (ER) | payer BC, MEDICAID ==
[~2022-03-02] VITALS: Ht 171.4 cm; Wt 52.0 kg
[~2022-03-02 14:47] MED LIST changes: -FOLI0.4T6 PO; -LAMO25TA23 PO; +LAMO25TB3 PO; +POTA-206 PO; -POTA10TA37 PO
[2022-03-02] MEDS ORDERED: normal saline 1000ML IV soln IV ONE (15:25)
[2022-03-02 15:46] LABS: BASOPHILS % (AUTO) 0.7 % (0-1); EOSINOPHILS % (AUTO) 0.6 % (0-6); LYMPHOCYTES # (AUTO) 0.7 X10'3 (1.1-4.8); LYMPHOCYTES % (AUTO) 10.8 % (21-51); MEAN CORPUSCULAR HEMOGLOBIN 29.9 PG (27.0-31.0); MEAN CORPUSCULAR HGB CONC 33.4 g/dL (33.0-36.5); MEAN CORPUSCULAR VOLUME 89.6 FL (78-98); MEAN PLATELET VOLUME 6.5 FL (7.4-10.4); MONOCYTES # (AUTO) 0.3 X10'3 (0-0.9); MONOCYTES % (AUTO) 4.7 % (2-12); NEUTROPHILS # (AUTO) 5.7 X10'3 (1.8-7.7); NEUTROPHILS % (AUTO) 83.2 % (42-75); PLATELET COUNT 269 X10'3 (140-440); RED BLOOD COUNT 2.68 X10'6 (4.20-5.60); RED CELL DISTRIBUTION WIDTH 16.2 % (11.5-14.5); WHITE BLOOD COUNT 6.9 X10'3 (4.5-11.0)
[2022-03-02 16:00] LABS: ALANINE AMINOTRANSFERASE 18 U/L (12-78); ALBUMIN 3.2 G/DL (3.4-5.0); ALBUMIN/GLOBULIN RATIO 0.9 (1.1-1.5); ALKALINE PHOSPHATASE 61 IU/L (46-116); ANION GAP 12 (8-16); ASPARTATE AMINO TRANSFERASE 23 U/L (10-37); BILIRUBIN,TOTAL 0.2 MG/DL (0.1-1.0); BLOOD UREA NITROGEN 6 MG/DL (7-18); BUN/CREATININE RATIO 8.1 (6.6-38.0); CALCIUM 7.9 MG/DL (8.5-10.1); CHLORIDE 104 MMOL/L (99-107); CREATININE 0.74 MG/DL (0.40-0.90); GLUCOSE 100 MG/DL (70-104); MAGNESIUM 1.8 MG/DL (1.5-2.4); POTASSIUM 3.1 MMOL/L (3.5-5.1); SODIUM 136 MMOL/L (135-145); TOTAL CARBON DIOXIDE 20.1 MMOL/L (24-32); TOTAL PROTEIN 6.8 G/DL (6.4-8.2); eGFR 80 ML/MIN
[2022-03-02 17:06] VITALS: BP 100/64
[2022-03-02] MEDS ORDERED: POTASSIUM BICARB 20meq eff tab 20 MEQ TABLET.EFF PO ONE ×2 (17:35)
== END 2022-03-02 18:19 | disposition home or self-care (01) ==
LOC: ER 14:47
DX: R42 Dizziness and giddiness (principal); R11.2 Nausea with vomiting, unspecified; G89.29 Other chronic pain; M54.50 Low back pain, unspecified; F31.9 Bipolar disorder, unspecified; Z88.8 Allergy status to other drugs, medicaments and biological substances; Z98.51 Tubal ligation status
CPT/HCPCS: 36415; 71045; 80053; 83605; 83735; 84145; 85025; 87040; 93005; 99285; J7030

== ENCOUNTER 2022-05-11 18:46 | Inpatient (IN) | payer BC, MEDICAID ==
[~2022-05-11] VITALS: Ht 170.2 cm; Wt 50.0 kg
[2022-05-11 20:02] LABS: BASOPHILS # (AUTO) 0.1 X10'3 (0-0.2); BASOPHILS % (AUTO) 0.7 % (0-1); EOSINOPHILS # (AUTO) 0.2 X10'3 (0-0.9); HEMOGLOBIN 8.9 g/dl (12.0-16.0); LYMPHOCYTES % (AUTO) 9.7 % (21-51); MEAN PLATELET VOLUME 5.5 FL (7.4-10.4); MONOCYTES # (AUTO) 0.9 X10'3 (0-0.9); MONOCYTES % (AUTO) 8.1 % (2-12); NEUTROPHILS # (AUTO) 8.4 X10'3 (1.8-7.7); NEUTROPHILS % (AUTO) 79.5 % (42-75); PLATELET COUNT 399 X10'3 (140-440); WHITE BLOOD COUNT 10.5 X10'3 (4.5-11.0)
[2022-05-11] MEDS ORDERED: ringers solution, lactated 500ml IV solution IV ONE (20:15)
[2022-05-11] MEDS ORDERED: HYDROcodone/acetaminophen 10/325mg tab PO ONE (20:15)
[2022-05-11 20:21] LABS: ALANINE AMINOTRANSFERASE 16 U/L (12-78); ALBUMIN 3.8 G/DL (3.4-5.0); ALBUMIN/GLOBULIN RATIO 0.8 (1.1-1.5); ALKALINE PHOSPHATASE 111 IU/L (46-116); ANION GAP 9 (8-16); ASPARTATE AMINO TRANSFERASE 28 U/L (10-37); BILIRUBIN,TOTAL 0.3 MG/DL (0.1-1.0); BLOOD UREA NITROGEN 8 MG/DL (7-18); BUN/CREATININE RATIO 10.7 (6.6-38.0); CALCIUM 9.1 MG/DL (8.5-10.1); CHLORIDE 82 MMOL/L (99-107); CREATININE 0.75 MG/DL (0.40-0.90); GLUCOSE 104 MG/DL (70-104); POTASSIUM 3.3 MMOL/L (3.5-5.1); TOTAL CARBON DIOXIDE 25.9 MMOL/L (24-32); TOTAL PROTEIN 8.5 G/DL (6.4-8.2); eGFR 79 ML/MIN
[2022-05-11 20:25] LABS: SODIUM 117 MMOL/L (135-145)
[2022-05-11] MEDS ORDERED: POTASSIUM BICARB 20meq eff tab 20 MEQ TABLET.EFF PO ONE (20:30)
[2022-05-11 20:47] LABS: RED BLOOD COUNT 2.97 X10'6 (4.20-5.60)
[2022-05-11 20:48] LABS: HEMATOCRIT 25.2 % (35.0-45.0); MEAN CORPUSCULAR HEMOGLOBIN 29.8 PG (27.0-31.0); MEAN CORPUSCULAR HGB CONC 35.1 g/dL (33.0-36.5); MEAN CORPUSCULAR VOLUME 84.8 FL (78-98)
[2022-05-11] MEDS ORDERED: LORazepam 1 MG tablet PO ONE (21:50)
[2022-05-12] MEDS: clindamycin 600mg/D5W 50ml 50 ML IV SCH ×3 (01:27→19:17)
[2022-05-12] MEDS ORDERED: NICO-630 TOP (05:23)
[2022-05-12] MEDS ORDERED: morphine 4 MG/ML inj SYRINge IV ONE (07:55)
[2022-05-12] MEDS ORDERED: magnesium Cl slow-release 64mg tablet PO PRN (08:45)
[2022-05-12] MEDS ORDERED: ondansetron/PF 4mg/2ml inj IV PRN (08:45)
[2022-05-12] MEDS ORDERED: mag hydrox/Alum hydrox/simeth 30ml oral suspension PO PRN (08:45)
[2022-05-12] MEDS ORDERED: acetaminophen 650mg rectal suppository RC PRN (08:45)
[2022-05-12] MEDS ORDERED: magnesium 4gm in 100ml NS 100 ML IV PRN (08:45)
[2022-05-12] MEDS ORDERED: potassium Cl 20 mEq SR tablet PO PRN ×2 (08:45)
[2022-05-12] MEDS ORDERED: potassium Cl 40MEQ/1/2NS 520ml 520 ML IV PRN (08:45)
[2022-05-12] MEDS ORDERED: ondansetron 4mg rapidly disintigrating tab PO PRN (08:45)
[2022-05-12] MEDS ORDERED: bisacodyl 10mg suppository rectal RC PRN (08:45)
[2022-05-12] MEDS ORDERED: magnesium hydroxide 30ml (MOM) UD suspension PO PRN (08:45)
[2022-05-12] MEDS ORDERED: acetaminophen 325mg tablet PO PRN ×2 (08:45)
[2022-05-12 09:19] LABS: ALANINE AMINOTRANSFERASE 15 U/L (12-78); ALBUMIN 3.5 G/DL (3.4-5.0); ALBUMIN/GLOBULIN RATIO 0.8 (1.1-1.5); ALKALINE PHOSPHATASE 89 IU/L (46-116); ANION GAP 8 (8-16); ASPARTATE AMINO TRANSFERASE 24 U/L (10-37); BILIRUBIN,TOTAL 0.4 MG/DL (0.1-1.0); BLOOD UREA NITROGEN 6 MG/DL (7-18); BUN/CREATININE RATIO 9.4 (6.6-38.0); CALCIUM 9.1 MG/DL (8.5-10.1); CHLORIDE 87 MMOL/L (99-107); CREATININE 0.64 MG/DL (0.40-0.90); GLUCOSE 133 MG/DL (70-104); MAGNESIUM 1.8 MG/DL (1.5-2.4); POTASSIUM 3.8 MMOL/L (3.5-5.1); SODIUM 121 MMOL/L (135-145); TOTAL CARBON DIOXIDE 26.4 MMOL/L (24-32); TOTAL PROTEIN 7.9 G/DL (6.4-8.2); eGFR > 90 ML/MIN
[2022-05-12 09:25] LABS: LYMPHOCYTES # (AUTO) 0.6 X10'3 (1.1-4.8); MEAN PLATELET VOLUME 6.4 FL (7.4-10.4); MONOCYTES # (AUTO) 0.6 X10'3 (0-0.9); NEUTROPHILS # (AUTO) 5.3 X10'3 (1.8-7.7); WHITE BLOOD COUNT 6.7 X10'3 (4.5-11.0)
[2022-05-12 09:26] LABS: BASOPHILS # (AUTO) 0.1 X10'3 (0-0.2); EOSINOPHILS # (AUTO) 0.1 X10'3 (0-0.9); EOSINOPHILS % (AUTO) 1.5 % (0-6); HEMATOCRIT 25.2 % (35.0-45.0); HEMOGLOBIN 8.6 g/dl (12.0-16.0); LYMPHOCYTES % (AUTO) 8.7 % (21-51); MEAN CORPUSCULAR HEMOGLOBIN 29.1 PG (27.0-31.0); MEAN CORPUSCULAR HGB CONC 34.2 g/dL (33.0-36.5); MEAN CORPUSCULAR VOLUME 84.9 FL (78-98); MONOCYTES % (AUTO) 9.6 % (2-12); NEUTROPHILS % (AUTO) 79.2 % (42-75); PLATELET COUNT 420 X10'3 (140-440); RED BLOOD COUNT 2.97 X10'6 (4.20-5.60); RED CELL DISTRIBUTION WIDTH 13.7 % (11.5-14.5)
--- NOTE | 2022-05-12 11:15 | NUR ---
PT AMBULATED TO BATHROOM WITH WALKER.
[2022-05-12 11:17] LABS: CHOL/HDL RATIO 1.8 (0.00-4.99); CHOLESTEROL 104 MG/DL (0-200); HDL CHOLESTEROL 57 MG/DL (35-60); LDL CHOLESTEROL 40 MG/DL (50-100); TRIGLYCERIDES 38 MG/DL (20-135)
[2022-05-12 11:38] LABS: OSMOLALITY UA 117 MOSM/K (50-1400)
[2022-05-12 11:42] LABS: CLARITY,URINE CLEAR (Clear); COLOR,URINE YELLOW (Yellow); GLUCOSE, URINE NEGATIVE (Neg); KETONES,URINE NEGATIVE (Neg); LEUKOCYTE ESTERASE ,URINE SMALL (Neg); NITRITES, URINE POSITIVE (Neg); OCCULT BLOOD,URINE NEGATIVE (Neg); PH,URINE 7.5 (4.8-8.0); PROTEIN,URINE NEGATIVE (Neg); UROBILINOGEN,URINE 0.2 E.U/dL (0.2-1.0)
[2022-05-12 11:45] LABS: UA COLLECTION TYPE CLN CATCH MIDSTREAM
[2022-05-12 11:50] LABS: SODIUM,URINE RANDOM 21 MEQ/L; TOTAL PROTEIN,URINE RANDOM < 6.0 MG/DL
[2022-05-12 11:54] LABS: BACTERIA,URINE 2+ /HPF (Neg); RBC,URINE 0-2 /HPF (0-2); WBC,URINE 0-4 /HPF (0-4)
[2022-05-12 11:55] LABS: SQUAMOUS EPITHELIAL CELL,UR FEW /LPF (FEW)
[2022-05-12] MEDS ORDERED: ZIPR40CA14 PO (11:59)
[2022-05-12] MEDS ORDERED: ZOLP5TAB8 PO (12:01)
[2022-05-12] MEDS ORDERED: IBUP-2697 PO (12:05)
[2022-05-12 13:27] LABS: ALBUMIN 3.5 G/DL (3.4-5.0); ANION GAP 6 (8-16); BLOOD UREA NITROGEN 6 MG/DL (7-18); CALCIUM 9.5 MG/DL (8.5-10.1); CHLORIDE 88 MMOL/L (99-107); GLUCOSE 111 MG/DL (70-104); POTASSIUM 4.2 MMOL/L (3.5-5.1); SODIUM 122 MMOL/L (135-145); TOTAL CARBON DIOXIDE 27.6 MMOL/L (24-32); eGFR > 90 ML/MIN
[2022-05-12 13:54] LABS: UA EOSINOPHILS NO EOS /HPF
[2022-05-12] MEDS: HYDROcodone/acetaminophen 5mg/325mg tablet PO PRN ×2 (16:00→22:24)
[2022-05-12 17:59] LABS: ALBUMIN 3.6 G/DL (3.4-5.0); ANION GAP 6 (8-16); BLOOD UREA NITROGEN 8 MG/DL (7-18); BUN/CREATININE RATIO 12.9 (6.6-38.0); CALCIUM 9.5 MG/DL (8.5-10.1); CHLORIDE 87 MMOL/L (99-107); CREATININE 0.62 MG/DL (0.40-0.90); GLUCOSE 107 MG/DL (70-104); POTASSIUM 4.1 MMOL/L (3.5-5.1); TOTAL CARBON DIOXIDE 27.4 MMOL/L (24-32); eGFR > 90 ML/MIN
[2022-05-12 18:09] LABS: SODIUM 120 MMOL/L (135-145)
--- NOTE | 2022-05-12 18:17 | NUR ---
Dr. Leon paged with critical value sodium 120.
[2022-05-12] MEDS: normal saline 1000ml 1,000 ML IV SCH ×2 (19:09→22:24)
[2022-05-12] MEDS: K and/or MAG REPLACEMENT MC SCH (19:17)
[2022-05-12] MEDS: docusate sod 100mg capsule PO SCH (19:17)
[2022-05-12 21:10] LABS: ALBUMIN 3.4 G/DL (3.4-5.0); ANION GAP 9 (8-16); BLOOD UREA NITROGEN 7 MG/DL (7-18); BUN/CREATININE RATIO 11.1 (6.6-38.0); CALCIUM 9.6 MG/DL (8.5-10.1); CHLORIDE 87 MMOL/L (99-107); CREATININE 0.63 MG/DL (0.40-0.90); GLUCOSE 107 MG/DL (70-104); POTASSIUM 4.1 MMOL/L (3.5-5.1); SODIUM 122 MMOL/L (135-145); TOTAL CARBON DIOXIDE 26.4 MMOL/L (24-32); eGFR > 90 ML/MIN
[2022-05-12 21:49] VITALS: BP 124/77
[2022-05-13 01:34] LABS: ALBUMIN 3.4 G/DL (3.4-5.0); ANION GAP 7 (8-16); BLOOD UREA NITROGEN 7 MG/DL (7-18); BUN/CREATININE RATIO 11.9 (6.6-38.0); CALCIUM 9.5 MG/DL (8.5-10.1); CHLORIDE 88 MMOL/L (99-107); CREATININE 0.59 MG/DL (0.40-0.90); GLUCOSE 105 MG/DL (70-104); POTASSIUM 3.7 MMOL/L (3.5-5.1); SODIUM 121 MMOL/L (135-145); TOTAL CARBON DIOXIDE 25.8 MMOL/L (24-32); eGFR > 90 ML/MIN
[2022-05-13] MEDS: HYDROcodone/acetaminophen 5mg/325mg tablet PO PRN ×2 (02:36→13:02)
[2022-05-13 02:42] VITALS: BP 109/68
[2022-05-13] MEDS: clindamycin 600mg/D5W 50ml 50 ML IV SCH ×3 (04:04→14:26)
[2022-05-13 06:00] VITALS: BP 155/79
[2022-05-13 06:15] LABS: BASOPHILS % (AUTO) 0.6 % (0-1); EOSINOPHILS # (AUTO) 0.1 X10'3 (0-0.9); EOSINOPHILS % (AUTO) 1.6 % (0-6); HEMATOCRIT 25.2 % (35.0-45.0); HEMOGLOBIN 8.7 g/dl (12.0-16.0); LYMPHOCYTES # (AUTO) 0.9 X10'3 (1.1-4.8); LYMPHOCYTES % (AUTO) 15.2 % (21-51); MEAN CORPUSCULAR HEMOGLOBIN 29.1 PG (27.0-31.0); MEAN CORPUSCULAR HGB CONC 34.5 g/dL (33.0-36.5); MEAN CORPUSCULAR VOLUME 84.3 FL (78-98); MEAN PLATELET VOLUME 6.3 FL (7.4-10.4); MONOCYTES # (AUTO) 0.7 X10'3 (0-0.9); MONOCYTES % (AUTO) 11.1 % (2-12); NEUTROPHILS # (AUTO) 4.5 X10'3 (1.8-7.7); NEUTROPHILS % (AUTO) 71.5 % (42-75); PLATELET COUNT 394 X10'3 (140-440); RED BLOOD COUNT 2.99 X10'6 (4.20-5.60); RED CELL DISTRIBUTION WIDTH 14.2 % (11.5-14.5); WHITE BLOOD COUNT 6.3 X10'3 (4.5-11.0)
[2022-05-13 06:26] LABS: ALBUMIN 3.4 G/DL (3.4-5.0); ANION GAP 9 (8-16); BLOOD UREA NITROGEN 7 MG/DL (7-18); CALCIUM 9.5 MG/DL (8.5-10.1); CHLORIDE 89 MMOL/L (99-107); GLUCOSE 107 MG/DL (70-104); MAGNESIUM 1.8 MG/DL (1.5-2.4); PHOSPHORUS 3.8 MG/DL (2.3-4.5); POTASSIUM 3.8 MMOL/L (3.5-5.1); SODIUM 122 MMOL/L (135-145); TOTAL CARBON DIOXIDE 24.5 MMOL/L (24-32); eGFR > 90 ML/MIN
[2022-05-13] MEDS: K and/or MAG REPLACEMENT MC SCH (08:00)
[2022-05-13] MEDS ORDERED: CefTRIAXone/D5W-Rocephin 1gm 50 ML IV SCH (08:20)
[2022-05-13] MEDS: docusate sod 100mg capsule PO SCH (08:40)
[2022-05-13 08:59] LABS: ALBUMIN 3.4 G/DL (3.4-5.0); ANION GAP 8 (8-16); BLOOD UREA NITROGEN 6 MG/DL (7-18); BUN/CREATININE RATIO 10.9 (6.6-38.0); CALCIUM 9.5 MG/DL (8.5-10.1); CHLORIDE 89 MMOL/L (99-107); CREATININE 0.55 MG/DL (0.40-0.90); GLUCOSE 144 MG/DL (70-104); POTASSIUM 3.5 MMOL/L (3.5-5.1); SODIUM 121 MMOL/L (135-145); TOTAL CARBON DIOXIDE 23.9 MMOL/L (24-32); eGFR > 90 ML/MIN
--- NOTE | 2022-05-13 10:00 | NUR ---
Malnutrition consult: Pt admitted w/ hyponatremia, BLE cellulitis, chronic anemia, Hep C, and ESLD per EMR. Pt states she has been struggling with N/V and poor appetite since she has hepatitis C. She has absolutely no idea about her wt hx or what she currently weighs. No recent scaled wts in EMR though it does appear that pt has been losing wt over the years. Pt was mostly covering herself and face with blanket, difficult to asses appearance, though may present w/ mild muscle/fat wasting. No edema noted. At this time pt does not meet minimum criteria for malnutrition. Pt is willing to try Ensure Enlive BID to help meet her needs. Will continue to monitor. Recommendation: 1. Ensure Enlive BIDBD; pending MD verification Addendum: 05/13/22 at [address] Amended: Links added.
[2022-05-13 11:52] VITALS: BP_SYST 127; BP_SYST 138; BP_DIAS 52; BP_DIAS 77
--- NOTE | 2022-05-13 12:03 | NUR ---
MESSAGE: [id number] Poisson--Cleared by PT for D/C home.
[2022-05-13] MEDS ORDERED: CEFD300C3 PO (12:55)
[2022-05-13] MEDS ORDERED: SODI1TAB2 PO (12:55)
[2022-05-13] MEDS ORDERED: lactose-reduced food (Ensure Enlive) - 237ml bottle PO SCH (17:30)
== END 2022-05-13 15:45 | disposition home health service (06) | DRG 158 ==
LOC: ER 18:47 → ED HOLD 05-12 08:47 → PCU 3S 05-12 21:26
PROVIDERS: ADMIT Family Medicine; ATTEND Family Medicine
DX: S02.611A Fracture of condylar process of right mandible, initial encounter for closed fracture (principal); E87.1 Hypo-osmolality and hyponatremia; L03.115 Cellulitis of right lower limb; R18.8 Other ascites; L03.116 Cellulitis of left lower limb; Z20.822 Contact with and (suspected) exposure to COVID-19; Z66 Do not resuscitate; B19.20 Unspecified viral hepatitis C without hepatic coma; D64.9 Anemia, unspecified; E87.6 Hypokalemia; E87.8 Other disorders of electrolyte and fluid balance, not elsewhere classified; F31.9 Bipolar disorder, unspecified; W18.39XA Other fall on same level, initial encounter; K72.10 Chronic hepatic failure without coma; S00.83XA Contusion of other part of head, initial encounter; F17.200 Nicotine dependence, unspecified, uncomplicated; F41.9 Anxiety disorder, unspecified; G89.29 Other chronic pain; M19.90 Unspecified osteoarthritis, unspecified site; M25.552 Pain in left hip; M54.9 Dorsalgia, unspecified; Z83.3 Family history of diabetes mellitus; Z88.8 Allergy status to other drugs, medicaments and biological substances; Z98.51 Tubal ligation status; Y93.89 Activity, other specified; Y92.89 Other specified places as the place of occurrence of the external cause; Y99.8 Other external cause status
CPT/HCPCS: 36415; 70450; 70486; 71045; 80048; 80053; 80061; 81001; 82570; 83735; 83880; 83935; 84100; 84133; 84156; 84300; 84443; 84484; 85025; 85610; 87077; 87081; 87088; 87186; 87207; 87635; 93005; 96374; 97116; 97161; 97530; 99285; A6213; A6449; C9803; G0378; J0696; J2270; J2405; J3490; J7030; J7120

== ENCOUNTER 2022-05-16 12:20 | Emergency (ER) | payer BC, MEDICAID ==
[~2022-05-16] VITALS: Ht 170.2 cm; Wt 49.0 kg
[~2022-05-16 12:20] MED LIST changes: -ACET-1 PO; -ASPI-1264 PO; +CEFD300C3 PO; -GABA-530 PO; -HYDR-3972 PO; +IBUP-2697 PO; -LAMO25TB3 PO; -MULT-25 PO; +NICO-630 TOP; -OMEP10CA5 PO; -PER5325T PO; -POTA-206 PO; -POTA-207 PO; +SODI1TAB2 PO; -THIA100T70 PO; -TRAM50TA2 PO; -TRAZ-256 PO; -ZIPR20CA12 PO; +ZIPR40CA14 PO; -ZOLP10TA PO; +ZOLP5TAB8 PO
[2022-05-16 12:53] LABS: BASOPHILS # (AUTO) 0.1 X10'3 (0-0.2); BASOPHILS % (AUTO) 1.5 % (0-1); EOSINOPHILS # (AUTO) 0.2 X10'3 (0-0.9); EOSINOPHILS % (AUTO) 4.7 % (0-6); LYMPHOCYTES # (AUTO) 1.1 X10'3 (1.1-4.8); LYMPHOCYTES % (AUTO) 21.8 % (21-51); MEAN CORPUSCULAR HEMOGLOBIN 29.1 PG (27.0-31.0); MEAN CORPUSCULAR VOLUME 85.8 FL (78-98); MONOCYTES # (AUTO) 0.6 X10'3 (0-0.9); MONOCYTES % (AUTO) 11.7 % (2-12); NEUTROPHILS % (AUTO) 60.3 % (42-75); PLATELET COUNT 318 X10'3 (140-440); RED CELL DISTRIBUTION WIDTH 14.1 % (11.5-14.5); WHITE BLOOD COUNT 5.1 X10'3 (4.5-11.0)
[2022-05-16 12:55] LABS: HEMATOCRIT 20.6 % (35.0-45.0)
[2022-05-16 13:03] LABS: ALANINE AMINOTRANSFERASE 15 U/L (12-78); ALBUMIN 3.1 G/DL (3.4-5.0); ALBUMIN/GLOBULIN RATIO 0.8 (1.1-1.5); ALKALINE PHOSPHATASE 100 IU/L (46-116); ANION GAP 6 (8-16); ASPARTATE AMINO TRANSFERASE 21 U/L (10-37); BILIRUBIN,TOTAL 0.2 MG/DL (0.1-1.0); BLOOD UREA NITROGEN 9 MG/DL (7-18); CALCIUM 8.1 MG/DL (8.5-10.1); CHLORIDE 97 MMOL/L (99-107); CREATININE 0.75 MG/DL (0.40-0.90); GLUCOSE 88 MG/DL (70-104); POTASSIUM 4.1 MMOL/L (3.5-5.1); SODIUM 128 MMOL/L (135-145); TOTAL PROTEIN 6.9 G/DL (6.4-8.2); eGFR 79 ML/MIN
[2022-05-16] MEDS ORDERED: normal saline 1000ML IV soln IVB ONE (13:10)
[2022-05-16 13:38] VITALS: BP 87/46
--- NOTE | 2022-05-16 14:24 | NUR ---
taxi eta 20-30 mins
--- NOTE | 2022-05-16 14:36 | NUR ---
Pt given and understands d/c instructions. IV d/c'd, catheter intact. Ambulatory with a walker. Escorted to the lobby via wheelchair. Taxi called for pt.
[2022-05-16 15:16] LABS: OCCULT BLOOD STOOL NEGATIVE (Neg)
== END 2022-05-16 14:38 | disposition home or self-care (01) ==
LOC: ER 12:20
DX: D64.9 Anemia, unspecified (principal); M19.90 Unspecified osteoarthritis, unspecified site; G89.29 Other chronic pain; M54.50 Low back pain, unspecified; F31.9 Bipolar disorder, unspecified; Z88.8 Allergy status to other drugs, medicaments and biological substances
CPT/HCPCS: 36415; 71045; 80053; 82272; 83880; 84145; 84484; 85025; 93005; 99285

== ENCOUNTER 2022-07-15 04:08 | Emergency (ER) | payer BC, MEDICAID ==
[~2022-07-15] VITALS: Ht 172.7 cm; Wt 51.8 kg
[~2022-07-15 04:08] MED LIST changes: -CEFD300C3 PO
--- NOTE | 2022-07-15 04:30 | NUR ---
I agree with A Prashanth Slaughter assessment.
[2022-07-15] MEDS ORDERED: acetaminophen 325mg tablet PO ONE (05:10)
[2022-07-15 07:50] LABS: BASOPHILS # (AUTO) 0.1 X10'3 (0-0.2); BASOPHILS % (AUTO) 0.7 % (0-1); EOSINOPHILS # (AUTO) 0.1 X10'3 (0-0.9); EOSINOPHILS % (AUTO) 0.6 % (0-6); HEMATOCRIT 23.6 % (35.0-45.0); HEMOGLOBIN 7.8 g/dl (12.0-16.0); LYMPHOCYTES # (AUTO) 0.7 X10'3 (1.1-4.8); LYMPHOCYTES % (AUTO) 8.2 % (21-51); MEAN CORPUSCULAR HEMOGLOBIN 27.8 PG (27.0-31.0); MEAN CORPUSCULAR HGB CONC 33.2 g/dL (33.0-36.5); MEAN CORPUSCULAR VOLUME 83.7 FL (78-98); MEAN PLATELET VOLUME 5.9 FL (7.4-10.4); MONOCYTES # (AUTO) 0.5 X10'3 (0-0.9); MONOCYTES % (AUTO) 5.9 % (2-12); NEUTROPHILS # (AUTO) 7.2 X10'3 (1.8-7.7); NEUTROPHILS % (AUTO) 84.6 % (42-75); PLATELET COUNT 371 X10'3 (140-440); RED BLOOD COUNT 2.82 X10'6 (4.20-5.60); RED CELL DISTRIBUTION WIDTH 15.1 % (11.5-14.5); WHITE BLOOD COUNT 8.5 X10'3 (4.5-11.0)
[2022-07-15 07:51] LABS: CHLORIDE 89 MMOL/L (99-107); POTASSIUM 3.5 MMOL/L (3.5-5.1)
[2022-07-15 07:53] LABS: ALANINE AMINOTRANSFERASE 15 U/L (12-78); ALBUMIN 3.2 G/DL (3.4-5.0); ALBUMIN/GLOBULIN RATIO 0.7 (1.1-1.5); ALKALINE PHOSPHATASE 106 IU/L (46-116); ANION GAP 10 (8-16); ASPARTATE AMINO TRANSFERASE 23 U/L (10-37); BILIRUBIN,TOTAL 0.2 MG/DL (0.1-1.0); BLOOD UREA NITROGEN 11 MG/DL (7-18); BUN/CREATININE RATIO 14.9 (6.6-38.0); CALCIUM 8.9 MG/DL (8.5-10.1); CREATININE 0.74 MG/DL (0.40-0.90); GLUCOSE 118 MG/DL (70-104); TOTAL CARBON DIOXIDE 21.5 MMOL/L (24-32); TOTAL PROTEIN 7.7 G/DL (6.4-8.2); eGFR 80 ML/MIN
[2022-07-15 07:54] LABS: SODIUM 120 MMOL/L (135-145)
[2022-07-15 09:06] VITALS: BP 131/65
== END 2022-07-15 11:39 | disposition home or self-care (01) ==
LOC: ER 04:09
DX: R55 Syncope and collapse (principal); M25.562 Pain in left knee; E87.1 Hypo-osmolality and hyponatremia; K21.9 Gastro-esophageal reflux disease without esophagitis; G89.29 Other chronic pain; M54.9 Dorsalgia, unspecified; F31.9 Bipolar disorder, unspecified; Z87.19 Personal history of other diseases of the digestive system; Z88.5 Allergy status to narcotic agent; Z79.899 Other long term (current) drug therapy; W19.XXXA Unspecified fall, initial encounter; Y93.89 Activity, other specified; Y92.89 Other specified places as the place of occurrence of the external cause; Y99.8 Other external cause status
CPT/HCPCS: 36415; 72170; 73502; 73551; 73564; 73590; 80053; 85025; 93005; 99285

== ENCOUNTER 2022-12-11 13:43 | Emergency (ER) | payer BC, MEDICAID ==
[~2022-12-11] VITALS: Ht 170.2 cm; Wt 50.5 kg
[2022-12-11 13:44] VITALS: BP 114/63
[2022-12-11] MEDS ORDERED: LORazepam 1 MG tablet PO ONE ×2 (16:45→18:05)
[2022-12-11] MEDS ORDERED: ondansetron 4mg rapidly disintigrating tab PO STA (17:04)
[2022-12-11] MEDS ORDERED: ibuprofen 200mg tablet PO STA (18:33)
== END 2022-12-11 19:14 | disposition home or self-care (01) ==
LOC: ER 13:44
DX: F41.9 Anxiety disorder, unspecified (principal); F45.9 Somatoform disorder, unspecified; K21.9 Gastro-esophageal reflux disease without esophagitis; M19.90 Unspecified osteoarthritis, unspecified site; Z88.8 Allergy status to other drugs, medicaments and biological substances
CPT/HCPCS: 99284

== ENCOUNTER 2022-12-16 23:07 | Emergency (ER) | payer BC, MEDICAID ==
[~2022-12-16] VITALS: Ht 170.2 cm; Wt 50.0 kg
[2022-12-17 08:45] LABS: BASOPHILS % (AUTO) 0.5 % (0-1); EOSINOPHILS % (AUTO) 0.5 % (0-6); HEMATOCRIT 23.4 % (35.0-45.0); HEMOGLOBIN 7.9 g/dl (12.0-16.0); LYMPHOCYTES # (AUTO) 0.5 X10'3 (1.1-4.8); LYMPHOCYTES % (AUTO) 8.1 % (21-51); MEAN CORPUSCULAR HEMOGLOBIN 25.6 PG (27.0-31.0); MEAN CORPUSCULAR HGB CONC 33.9 g/dL (33.0-36.5); MEAN CORPUSCULAR VOLUME 75.4 FL (78-98); MEAN PLATELET VOLUME 5.3 FL (7.4-10.4); MONOCYTES # (AUTO) 0.7 X10'3 (0-0.9); NEUTROPHILS # (AUTO) 5.3 X10'3 (1.8-7.7); NEUTROPHILS % (AUTO) 79.9 % (42-75); PLATELET COUNT 425 X10'3 (140-440); RED CELL DISTRIBUTION WIDTH 14.5 % (11.5-14.5); WHITE BLOOD COUNT 6.6 X10'3 (4.5-11.0)
--- NOTE | 2022-12-17 09:00 | NUR ---
Pt. in bed, yelling "Im going to retirement"
[2022-12-17] MEDS ORDERED: SOFO1TAB PO (09:05)
[2022-12-17 09:40] LABS: ALANINE AMINOTRANSFERASE 26 U/L (12-78); ALBUMIN 3.2 G/DL (3.4-5.0); ALBUMIN/GLOBULIN RATIO 0.7 (1.1-1.5); ALKALINE PHOSPHATASE 81 IU/L (46-116); ANION GAP 9 (8-16); ASPARTATE AMINO TRANSFERASE 21 U/L (10-37); BILIRUBIN,TOTAL 0.3 MG/DL (0.1-1.0); BLOOD UREA NITROGEN 7 MG/DL (7-18); BUN/CREATININE RATIO 13.5 (10.0-20.0); CALCIUM 9.1 MG/DL (8.5-10.1); CHLORIDE 85 MMOL/L (99-107); CREATINE KINASE 69 U/L (26-192); CREATININE 0.52 MG/DL (0.40-0.90); ETHANOL < 0.010 GM/DL (0.0-0.010); GLUCOSE 133 MG/DL (70-104); TOTAL CARBON DIOXIDE 23.5 MMOL/L (24-32); TOTAL PROTEIN 7.9 G/DL (6.4-8.2); eGFR > 90 ML/MIN
[2022-12-17] MEDS ORDERED: LORazepam 1 MG tablet PO ONE (09:40)
[2022-12-17 09:44] LABS: ACETAMINOPHEN < 2.0 UG/ML (10-30); POTASSIUM 2.9 MMOL/L (3.5-5.1); SODIUM 117 MMOL/L (135-145)
--- NOTE | 2022-12-17 10:00 | NUR ---
Critical labs relayed to provider
[2022-12-17] MEDS ORDERED: potassium Cl 20 mEq SR tablet PO ONE (10:20)
[2022-12-17] MEDS ORDERED: normal saline 1000ML IV soln IVB ONE (10:20)
--- NOTE | 2022-12-17 11:00 | NUR ---
N.O recieved K+, IV placed by DIPLOMA DENTAL ASSISTANT bolus hung
--- NOTE | 2022-12-17 11:45 | NUR ---
Pt. c/o back pain; PRN Motrin administered
[2022-12-17] MEDS: ibuprofen 200mg tablet PO PRN ×2 (11:46→21:26)
--- NOTE | 2022-12-17 14:00 | NUR ---
Pt. found to be incontinent of urine, required hands on assistance with hygiene, and transfers from to [facility].
[2022-12-17 15:41] LABS: BASOPHILS % (AUTO) 0.7 % (0-1); EOSINOPHILS % (AUTO) 0.5 % (0-6); HEMATOCRIT 24.6 % (35.0-45.0); HEMOGLOBIN 8.3 g/dl (12.0-16.0); LYMPHOCYTES # (AUTO) 0.4 X10'3 (1.1-4.8); LYMPHOCYTES % (AUTO) 6.4 % (21-51); MEAN CORPUSCULAR HEMOGLOBIN 25.6 PG (27.0-31.0); MEAN CORPUSCULAR HGB CONC 33.6 g/dL (33.0-36.5); MEAN PLATELET VOLUME 5.8 FL (7.4-10.4); MONOCYTES # (AUTO) 0.7 X10'3 (0-0.9); NEUTROPHILS # (AUTO) 5.3 X10'3 (1.8-7.7); NEUTROPHILS % (AUTO) 81.4 % (42-75); PLATELET COUNT 474 X10'3 (140-440); RED BLOOD COUNT 3.23 X10'6 (4.20-5.60); RED CELL DISTRIBUTION WIDTH 14.4 % (11.5-14.5); WHITE BLOOD COUNT 6.5 X10'3 (4.5-11.0)
[2022-12-17 15:52] LABS: ALBUMIN 3.2 G/DL (3.4-5.0); ANION GAP 9 (8-16); BLOOD UREA NITROGEN 8 MG/DL (7-18); CALCIUM 9.1 MG/DL (8.5-10.1); CHLORIDE 92 MMOL/L (99-107); CREATININE 0.57 MG/DL (0.40-0.90); GLUCOSE 112 MG/DL (70-104); POTASSIUM 3.8 MMOL/L (3.5-5.1); SODIUM 125 MMOL/L (135-145); TOTAL CARBON DIOXIDE 23.7 MMOL/L (24-32); eGFR > 90 ML/MIN
[2022-12-17] MEDS ORDERED: ZOLP6.2539 PO (16:55)
[2022-12-17] MEDS ORDERED: SUCR1TAB PO (16:57)
--- NOTE | 2022-12-17 18:35 | NUR ---
Patient is reclining in her bed. No distress observed. Continue to monitor.
--- NOTE | 2022-12-17 20:11 | NUR ---
Patient was taken to the BR in the w/c. Patient urinated in the toilet but missed the hat. Continue to monitor.
[2022-12-17] MEDS ORDERED: non-formulary drug (Zolpidem Tartrate 1 TAB) PO PRN (20:30)
[2022-12-17] MEDS: sucralfate 1 gm tablet PO SCH ×2 (21:00→21:54)
[2022-12-17] MEDS ORDERED: ziprasidone 20mg capsule PO SCH (21:00)
--- NOTE | 2022-12-17 21:20 | NUR ---
Patient wanting to use phone but RN advised patient it is too late to call. Patient verbalized understanidng. Continue to monitor.
[2022-12-17] MEDS: sertraline 50mg tablet PO SCH (21:26)
[2022-12-17] MEDS: zolpidem 5mg tablet PO PRN (21:26)
--- NOTE | 2022-12-17 22:03 | NUR ---
Patient yelling from her bed. "I need to make a call. This is a mistake! I'm losing my benefits, aren't I?" RN advised patient that she does not know anything about her benefits. Patient then asked the RN how she got here. RN had already looked in her chart and advised patient that either she or her caregiver brought her in because she stated she wanted to kill herself. Patient vaguely remembers riding in the ambulance. Patient denied suicidal ideation. Continue to monitor.
--- NOTE | 2022-12-17 22:50 | NUR ---
Patient to the BR with Tech. Patient missed the hat again. RN advised Tech that next time we will have her sit on a bed deleon in the bed to collect the urine and RN would also assist. Continue to monitor.
--- NOTE | 2022-12-18 00:06 | NUR ---
Patient sleeping supine. No distress observed. Continue to monitor.
--- NOTE | 2022-12-18 01:14 | NUR ---
Patient sitting up in bed due to another patient screaming. Patient is quiet and in no distress. Continue to monitor.
--- NOTE | 2022-12-18 02:03 | NUR ---
Patient pushed the call button. RN asked patient not to push the button since it is loud and she is a short distance away from staff. RN asked what she needed. Patient states she just remembered that this place is an evil place and there are dragons here. RN asked patient to try to go back to sleep. Patient states I don't have to go to sleep. RN agreed but asked if she would please be quiet so others could sleep. Continue to monitor.
--- NOTE | 2022-12-18 02:14 | NUR ---
Patient insists she needs to make a phone call. "It is imperative." Patient will not tell RN why or what is so imperative. Continue to monitor.
--- NOTE | 2022-12-18 03:01 | NUR ---
Tech walking another patient to the . Tech looked into [place]'s room and patient was topless. The second Tech brought a shirt for the patient to wear. Continue to monitor.
--- NOTE | 2022-12-18 03:36 | NUR ---
Patient awake and asked for a new depends because patient was incontinent of urine. RN gave patient a depends and Tech gave her clean pants. Continue to monitor.
--- NOTE | 2022-12-18 03:54 | NUR ---
Patient reclining in bed and talking to herself. Patient appears to be responding to internal stimuli. Continue to monitor.
[2022-12-18 04:28] LABS: CLARITY,URINE SLIGHTLY CLOUDY (Clear); COLOR,URINE STRAW (Yellow); GLUCOSE, URINE NEGATIVE (Neg); KETONES,URINE NEGATIVE (Neg); LEUKOCYTE ESTERASE ,URINE SMALL (Neg); NITRITES, URINE NEGATIVE (Neg); OCCULT BLOOD,URINE SMALL (Neg); PROTEIN,URINE NEGATIVE (Neg); UROBILINOGEN,URINE 0.2 E.U/dL (0.2-1.0)
[2022-12-18 04:38] LABS: UA COLLECTION TYPE CLN CATCH MIDSTREAM
[2022-12-18 04:43] LABS: BACTERIA,URINE FEW /HPF (Neg); SQUAMOUS EPITHELIAL CELL,UR FEW /LPF (FEW)
--- NOTE | 2022-12-18 05:23 | NUR ---
Patient awake and responding to internal stimuli. Patient is clothed. Continue to monitor.
[2022-12-18 06:45] LABS: URINE AMPHETAMINE SCREEN NEGATIVE (Neg); URINE BARBITUATE SCREEN NEGATIVE (Neg); URINE BENZODIAZEPINES SCREEN NEGATIVE (Neg); URINE CANNABINOID SCREEN POSITIVE (Neg); URINE COCAINE SCREEN NEGATIVE (Neg); URINE METHADONE SCREEN NEGATIVE (Neg); URINE OPIATE SCREEN NEGATIVE (Neg); URINE PHENCYCLIDINE SCREEN NEGATIVE (Neg)
--- NOTE | 2022-12-18 07:10 | NUR ---
jeff hicks tpt packet to [facility]
--- NOTE | 2022-12-18 07:15 | NUR ---
Patient sitting up at bedside appearing agitated, attempting to get up and leave. Gait wobbly. Staff attempted to redirect and instructed to sit. RR 20.
[2022-12-18] MEDS ORDERED: HYDR-3686 PO (07:53)
[2022-12-18] MEDS ORDERED: ZIPR40CA2 PO (07:53)
[2022-12-18] MEDS: sucralfate 1 gm tablet PO SCH ×4 (08:00→20:20)
[2022-12-18] MEDS: nicotine 7mg patch - 24hr TD SCH (08:00)
[2022-12-18] MEDS ORDERED: LORazepam 2 mg/ml vial IM ONE (08:40)
[2022-12-18] MEDS: ziprasidone 20mg capsule PO SCH ×2 (08:56→20:14)
--- NOTE | 2022-12-18 09:00 | NUR ---
jeff sitting by bed when pt was eating breakfast, during this time pt ate her tube of chapstick that was sitting on the bedside table. Jeff encouraged pt to drink water or cough it up. Pt eventually coughed up the chapstick into an emesis bag. Jeff informed RN and showed her the emesis bag. Both chaptick and emesis bag thrown away.
--- NOTE | 2022-12-18 09:46 | NUR ---
Pt becoming aggresive and shouting, "Fathers of iniquity, sons of iniquity. Period! Exclamation point!". Staff unable to redirect patient or prevent harm from unsafe transfers. Verbalizing aggression towards staff. MD notified and medication orders placed.
[2022-12-18] MEDS ORDERED: diphenhydrAMINE 50 mg/ml inj IM ONE (09:55)
[2022-12-18] MEDS ORDERED: haloperidol lactate 5mg/ml inj IM ONE (09:55)
[2022-12-18] MEDS: SOFOSBUVIR PO SCH (11:12)
[2022-12-18] MEDS: VELPATASVIR PO SCH (11:12)
--- NOTE | 2022-12-18 11:30 | NUR ---
Medication somewhat effective - pt slightly less loud and not attempting to leave dover at this time. Ate appx 50% of morning meal.
--- NOTE | 2022-12-18 13:52 | NUR ---
Patient fell asleep for appx 2 hours this afternoon. RR 18, with no signs of distress during that time. Had another episode of urinary incontinance in bed. Breif, clothes and bedding changed.
--- NOTE | 2022-12-18 15:42 | NUR ---
Patient had large episode of urinary incontinance in bed. PJs, bedding, and brief changed again. Did eat >75% of noon tray. Has been taking medication this tour without difficulty.
--- NOTE | 2022-12-18 17:20 | NUR ---
Pt sitting up at bedside, attempting to walk across room ind (unsafe due to emaciated stated and wobbly gait), but is redirectable. Pt still almost continuously stating, "Workers of iniquities. Fathers, period. 7! Fathers of iniquities". Pt did notify greeting card writer she wanted to use restroom - greeting card writer successful in assisting patient to void in toilet.
--- NOTE | 2022-12-18 17:32 | NUR ---
Roommate, Andra, calledx3 this tour to talk with patient.
[2022-12-18] MEDS ORDERED: LORazepam 1 MG tablet PO ONE (17:50)
--- NOTE | 2022-12-18 18:30 | NUR ---
Received report from primary care nurse Ashley UMANZOR. Assumed patient care. Patient is awake and alert on room air sitting at her bedside talking. Mostly word salad. Patient can carry a conversation when spoken to. Word salad lessens. Denies needs at this time. Call light and items of frequent use within reach. Will continue to monitor for changes.
[2022-12-18] MEDS ORDERED: ZIPRASIDONE HCL 40 MG PO SCH (20:00)
[2022-12-18] MEDS: sertraline 50mg tablet PO SCH (20:14)
[2022-12-18] MEDS: ibuprofen 200mg tablet PO PRN (20:15)
[2022-12-18] MEDS: zolpidem 5mg tablet PO PRN (20:15)
--- NOTE | 2022-12-18 20:30 | NUR ---
Toileted patient with assistance of germain Wang. Patient did not urinate. Assisted back to bed and helped her lay down.
--- NOTE | 2022-12-18 22:30 | NUR ---
With assistance from jeff Wang patients linens and scrubs were changed. Patient was cleaned up after spilling her milk in her bed and on herself. Assisted patient to lay down and provided a warm blanket.
--- NOTE | 2022-12-19 00:30 | NUR ---
Patient resting with relaxed and unlabored respirations on room air. In no apparent distress. Will continue to monitor for changes.
--- NOTE | 2022-12-19 02:30 | NUR ---
Patient resting with relaxed and unlabored respirations on room air. In no apparent distress. Will continue to monitor for changes.
--- NOTE | 2022-12-19 03:29 | NUR ---
Patient resting with relaxed and unlabored respirations on room air. In no apparent distress. Will continue to monitor for changes.
--- NOTE | 2022-12-19 04:33 | NUR ---
Patient resting on her left side with even and relaxed respirations on room air. In no apparent distress. Will continue to monitor for changes.
--- NOTE | 2022-12-19 05:19 | NUR ---
Patient resting on her left side with even and relaxed respirations on room air. In no apparent distress. Will continue to monitor for changes.
--- NOTE | 2022-12-19 05:44 | NUR ---
Patient is awake and alert this am no longer with word chelsy asking, "where am I? Whats going on? What happened?" Assisted patient to the restroom with Koru assistance. Patient had a very large continent void and actually asked to wash her hands. Once back to her bed the patient again asked, "what happened?" This nurse explained the situation and she nodded saying, "this has happened before when my sodium is off." Provided a warm blanket. Will continue to monitor for changes.
--- NOTE | 2022-12-19 06:56 | NUR ---
Bola sleeping supine. No distress observed. Continue to monitor.
[2022-12-19] MEDS: nicotine 7mg patch - 24hr TD SCH ×2 (08:00→09:00)
--- NOTE | 2022-12-19 08:17 | NUR ---
Patient eating breakfast. No distress observed. Continue to monitor.
--- NOTE | 2022-12-19 08:40 | NUR ---
Patient ambulatory to BR with her walker. No incontinence. Continue to monitor.
[2022-12-19] MEDS: SOFOSBUVIR PO SCH (08:59)
[2022-12-19] MEDS: ziprasidone 20mg capsule PO SCH ×2 (08:59→20:25)
[2022-12-19] MEDS: VELPATASVIR PO SCH (08:59)
[2022-12-19] MEDS: sucralfate 1 gm tablet PO SCH ×4 (08:59→20:25)
[2022-12-19] MEDS ORDERED: LORazepam 1 MG tablet PO ONE (10:15)
--- NOTE | 2022-12-19 10:35 | NUR ---
Patient appears more aware today. Patient is still saying some strange things. Patient keeps asking about a play that she saw yesterday and asked RN if we had put on a play. RN advised that we had not. Patient stated it must have been a dream. Continue to monitor.
--- NOTE | 2022-12-19 11:58 | NUR ---
Patient up and down walking with her walker. Patient talking on the phone with her roommate. Patient is confused but still better than she has been. Continue to monitor.
[2022-12-19 12:54] LABS: POTASSIUM 2.9 MMOL/L (3.5-5.1)
--- NOTE | 2022-12-19 12:55 | NUR ---
Patient did not eat any of her lunch. Patient did eat all of her breakfast. Continue to monitor.
--- NOTE | 2022-12-19 12:57 | NUR ---
Took the critical lab result phone call. Lab called to report the K was 2.9. Dr. Faith notified and I also called ED overflow to inform the nurse assigned to this patient. Spoke to Shadow EQUIPMENT RECORDS SUPERVISOR
[2022-12-19] MEDS ORDERED: potassium Cl 20 mEq SR tablet PO ONE (13:00)
--- NOTE | 2022-12-19 14:40 | NUR ---
Patient reclining in bed. No distress observed. Continue to monitor.
[2022-12-19] MEDS ORDERED: magnesium hydroxide 30ml (MOM) UD suspension PO ONE (15:00)
--- NOTE | 2022-12-19 15:01 | NUR ---
Patient requesting something for constipation. RN giving patient M.O.M. No distress observed. Continue to monitor.
--- NOTE | 2022-12-19 16:05 | NUR ---
Patient asked for a clean pullup as patient urinated in it. RN gave patient the pullup and patient was able to change herself. Continue to monitor.
--- NOTE | 2022-12-19 18:05 | NUR ---
Patient ate a little bit of her food. No distress observed. Continue to monitor.
--- NOTE | 2022-12-19 20:03 | NUR ---
Patient sleeping supine. No distress observed. RN gave patient a warm blanket. Continue to monitor.
[2022-12-19] MEDS: zolpidem 5mg tablet PO PRN (20:26)
[2022-12-19] MEDS: sertraline 50mg tablet PO SCH (20:26)
--- NOTE | 2022-12-19 22:13 | NUR ---
Patient continues to sleep. RN gave patient another warm blanket. Patient opened her eyes and re-adjusted. No distress observed. Continue to monitor.
--- NOTE | 2022-12-20 00:21 | NUR ---
Patient continues to sleep. No distress observed. Continue to monitor.
--- NOTE | 2022-12-20 00:44 | NUR ---
Patient ambulatory from BR with walker. Steady gait. No distress observed. Continue to monitor.
--- NOTE | 2022-12-20 01:53 | NUR ---
Patient sleeping supine. No distress observed. Continue to monitor.
--- NOTE | 2022-12-20 03:40 | NUR ---
Patient continues to sleep supine. Respirations equal and nonlabored. No distress observed. Continue to monitor.
--- NOTE | 2022-12-20 04:50 | NUR ---
Patient calls nurse over and asks if she can change her DNR status. RN advised that we are not equipped to change her DNR status and she would need to speak to her Doctor. Patient was upset about a dream she had where she had rejected God. RN advised patient that it was just a dream and not real. Patient appeared reassured. Continue to monitor.
--- NOTE | 2022-12-20 05:26 | NUR ---
Patient ambulatory to BR with her walker, steady gait. No distress observed. Continue to monitor.
--- NOTE | 2022-12-20 07:00 | NUR ---
Received Pt in bed sleeping w/o distress. will continue to monitor.
[2022-12-20] MEDS: sucralfate 1 gm tablet PO SCH ×4 (08:34→20:45)
[2022-12-20] MEDS: VELPATASVIR PO SCH (08:35)
[2022-12-20] MEDS: SOFOSBUVIR PO SCH (08:35)
[2022-12-20] MEDS: ziprasidone 20mg capsule PO SCH ×2 (08:35→20:45)
--- NOTE | 2022-12-20 09:10 | NUR ---
Pt took AM meds and ate portion of breakfast. Pt demanding at times and can be pleasant as well. P c/o being cold intermitently and warm blankets provided. Pt up to bathroom via FWW and managed well.
--- NOTE | 2022-12-20 10:25 | NUR ---
Sent RN on a break. Pt resting comfortably, rr even and unlabored.
--- NOTE | 2022-12-20 11:20 | NUR ---
Pt in bed resting and in no distress at this time. Will continue to monitor.
--- NOTE | 2022-12-20 14:15 | NUR ---
Pt enjoyed visit with roommate. Pt incontinent of stool during visit and was given wipes to clean up after removing soiled diaper. Pty clean and in bed at this time.
--- NOTE | 2022-12-20 16:54 | NUR ---
Pt has been in bed resting and napping intermitently. Will continue to monitor.
--- NOTE | 2022-12-20 18:49 | NUR ---
pt resting on bed no visual signs of of distress. pt stated diffulity urinating md made aware.
--- NOTE | 2022-12-20 19:41 | NUR ---
Pt resting comfortably, just used restroom. MD starting Keflex r/t possible UTI. No changes in behavior noted att.
[2022-12-20] MEDS: sertraline 50mg tablet PO SCH (20:45)
[2022-12-20] MEDS: cephalexin 250mg capsule PO SCH (20:46)
--- NOTE | 2022-12-20 21:45 | NUR ---
Pt used restroom and took all meds without complication. Pt is resting comfortably att.
--- NOTE | 2022-12-20 23:50 | NUR ---
Pt used restroom, sleeping well. No changes in behavior.
--- NOTE | 2022-12-21 03:00 | NUR ---
Pt sleeping well, no changes in behaviors.
--- NOTE | 2022-12-21 05:00 | NUR ---
Pt sleeping well, no changes att.
--- NOTE | 2022-12-21 06:36 | NUR ---
Patient sleeping supine. No distress observed. Continue to monitor.
[2022-12-21 06:57] VITALS: BP 157/86
[2022-12-21] MEDS: sucralfate 1 gm tablet PO SCH ×3 (08:00→17:00)
--- NOTE | 2022-12-21 08:25 | NUR ---
Patient laying in bed awake. No distress observed. RN asked patient how she was doing. Patient states "terrible". Patient states she doesn't want to eat breakfast because she is anxious. Patient's 5150 is up for re-eval today. Patient does not appear psychotic. Continue to monitor.
[2022-12-21] MEDS: ziprasidone 20mg capsule PO SCH (08:51)
[2022-12-21] MEDS: cephalexin 250mg capsule PO SCH (08:51)
[2022-12-21] MEDS: SOFOSBUVIR PO SCH (08:52)
[2022-12-21] MEDS: VELPATASVIR PO SCH (08:52)
--- NOTE | 2022-12-21 10:18 | NUR ---
Patient ambulatory to BR with walker. No distress observed. Continue to monitor.
--- NOTE | 2022-12-21 12:10 | NUR ---
Patient eating lunch. No distress observed. Continue to monitor.
--- NOTE | 2022-12-21 14:23 | NUR ---
Patient reclining in bed. No distress observed. Continue to monitor.
[2022-12-21] MEDS ORDERED: POTASSIUM BICARB 20meq eff tab 20 MEQ TABLET.EFF PO ONE (14:55)
[2022-12-21] MEDS ORDERED: CEPH-585 PO (14:58)
[2022-12-21] MEDS ORDERED: POTA-207 PO (14:58)
[2022-12-21] MEDS ORDERED: potassium Cl 20 mEq SR tablet PO STA (15:13)
--- NOTE | 2022-12-21 16:09 | NUR ---
The 5150 was removed as patient is much better than when she first arrived. Patient is oriented and making sense. Patient wanted anti-anxiety medication for discharge but Dr De Leon would not write a RX for the med. Patient did get a RX for K-Dur 20 Meq 1 daily. Patient also has a RX for Keflex for a UTI. These RX's were sent to [facility] on [address]. RN called [facility] and pharmacy stated her RXs would be ready by the time she is discharged this evening. Continue to monitor. Patient understands she is picking up her RXs on the way home in the Taxi.
--- NOTE | 2022-12-21 17:00 | NUR ---
RN called for Taxi for patient. There is a 2 hour wait and they will call if they can come earlier. Patient will eat dinner here and be taken to get her RXs at [facility] and then home to [facility] [address] Patient aware Continue to monitor.
--- NOTE | 2022-12-21 19:35 | NUR ---
Pt D/C'd. Pt escorted out in W/C to [employer]. All personal belongings with pt.
== END 2022-12-21 19:38 | disposition home or self-care (01) ==
LOC: ER 23:08
DX: F41.9 Anxiety disorder, unspecified (principal); Z20.822 Contact with and (suspected) exposure to COVID-19; F22 Delusional disorders; K21.9 Gastro-esophageal reflux disease without esophagitis; M19.90 Unspecified osteoarthritis, unspecified site; F31.9 Bipolar disorder, unspecified; Z88.8 Allergy status to other drugs, medicaments and biological substances; Z98.51 Tubal ligation status
CPT/HCPCS: 36415; 80048; 80053; 80305; 80320; 80329; 81001; 82550; 84132; 84295; 84443; 84484; 85025; 87811; 93005; 96360; 96361; 96372; 99285; J7030

== ENCOUNTER 2022-12-22 19:12 | Emergency (ER) | payer BC, MEDICAID ==
[~2022-12-22] VITALS: Ht 157.5 cm; Wt 59.1 kg
[~2022-12-22 19:12] MED LIST changes: +CEPH-585 PO; +HYDR-3686 PO; +POTA-207 PO; -SODI1TAB2 PO; +SOFO1TAB PO; +SUCR1TAB PO; -ZIPR40CA14 PO; +ZIPR40CA2 PO; -ZOLP5TAB8 PO; +ZOLP6.2539 PO
--- NOTE | 2022-12-23 01:15 | NUR ---
Andra, is coming in to help she won't give me her address
--- NOTE | 2022-12-23 02:45 | NUR ---
made aware pt in room 3 and that "Andra" is here that knows the pt.
[2022-12-23] MEDS ORDERED: zolpidem 5mg tablet PO ONE (03:30)
[2022-12-23] MEDS ORDERED: ZOLP5TAB2 PO ×2 (03:30→03:32)
[2022-12-23 03:38] VITALS: BP 127/68
== END 2022-12-23 03:39 | disposition home or self-care (01) ==
LOC: ER 19:13
DX: R45.1 Restlessness and agitation (principal); K21.9 Gastro-esophageal reflux disease without esophagitis; G89.29 Other chronic pain; M54.9 Dorsalgia, unspecified; F31.9 Bipolar disorder, unspecified; Z87.81 Personal history of (healed) traumatic fracture; Z88.8 Allergy status to other drugs, medicaments and biological substances; Z79.899 Other long term (current) drug therapy
CPT/HCPCS: 99283